=== PATIENT | female | born 1995 | race African-American/Black ===

== ENCOUNTER → 2022-10-24 11:40 | Outpatient (CLI) | payer MEDICAID, SELFPAY ==
[2022-10-24 13:29] LABS: Basophils % 0.3 % (0.1-2.0); Eosinophils # 0.1 K/mm3 (0.0-0.4); Eosinophils % 1.1 % (0.1-12.0); Lymphocytes # 2.3 K/mm3 (0.7-4.5); Lymphocytes % 27.2 % (10-50); Mean Corpuscular HGB Conc 33.5 g/dL (31.8-35.4); Mean Corpuscular Hemoglobin 31.5 pg (27.0-31.2); Mean Corpuscular Volume 94.1 fl (81-99); Monocytes # 0.4 K/mm3 (0.1-1.0); Monocytes % 4.5 % (1.7-9.3); Neutrophils # 5.7 K/mm3 (1.8-7.8); Neutrophils % 66.8 % (37.0-80.0); Platelet Count 326 K/mm3 (142-424); Red Blood Count 3.18 M/mm3 (4.20-5.40); Red Cell Distribution Width 14.4 % (11.5-17.5); White Blood Count 8.5 K/mm3 (4.8-10.8)
== END ==
PROVIDERS: Visit Provider Nurse Practitioner Obstetrics & Gynecology
DX: Z34.93 Encounter for supervision of normal pregnancy, unspecified, third trimester (principal); Z3A.32 32 weeks gestation of pregnancy
CPT/HCPCS: 36415; 85025; 87086

== ENCOUNTER → 2022-10-31 13:01 | Outpatient (CLI) | payer MEDICAID, SELFPAY ==
--- NOTE | 2022-10-31 13:06 | US_ITS ---
PROCEDURE: US OB BIOPHYSICAL PROFILE CLINICAL INDICATION: lga COMPARISON: FINDINGS: From her established due date she is 33weeks 2days. The following parameters are obtained: Viable fetus in the cephalic presentation with an anterior placenta grade 1. Average ultrasound age is 33weeks 6days. Estimated due date by ultrasound is 12/13/2022. Estimated weight is 5lb 10.57oz. 89Percentile. heart rate: 143bpm bpm. BPD: 32 weeks 2 days HC: 32 weeks 6 days AC: 34 weeks 4 days FL: 33 weeks 6 days HC/AC: 0.97 Cephalic index: 1.29 FL/BPD: 0.62 FL/AC: 0.22 Amniotic fluid index: 6.83cm is a 3.7 cm x 4.1 cm pocket. Qualitative AFV: 2 breathing movements: 2 Gross body movements: 2 Tone: 2 Biophysical profile score: 8 No obvious anomalies evident.Kidneys, three-vessel cord appear normal. Four-chamber view appears normal, profile seen. Stomach and bladder visualized. IMPRESSION: 1. Viable fetus in the cephalic presentation with an anterior placenta grade 1. Size and dates are congruent. 2. Fluid is low with an amniotic fluid index of 6.83 cm. There is a pocket measuring 3.7 cm x 4.1 cm. 3. Biophysical profile is 8/8 with good breathing movement seen. Dictated by: Tanner Fry MD 10/31/2022 19:52 Tanner Fry MD in OV 10/31/2022 19:52
== END ==
PROVIDERS: Visit Provider Nurse Practitioner Obstetrics & Gynecology
DX: O36.63X0 Maternal care for excessive fetal growth, third trimester, not applicable or unspecified (principal); Z3A.33 33 weeks gestation of pregnancy
CPT/HCPCS: 76816; 76819

== ENCOUNTER → 2022-11-20 16:35 | Outpatient (CLI) | payer MEDICAID, SELFPAY | PROVIDERS: PCP Nurse Practitioner Obstetrics & Gynecology; Visit Provider Nurse Practitioner Obstetrics & Gynecology | DX: O36.63X0 Maternal care for excessive fetal growth, third trimester, not applicable or unspecified (principal); Z3A.36 36 weeks gestation of pregnancy | CPT/HCPCS: 86403 ==

== ENCOUNTER 2022-12-01 09:00 | Inpatient (IN) | payer MEDICAID, SELFPAY ==
[2022-12-01] VITALS (13 sets, daily range): BP systolic 105–130; BP diastolic 58–83; PULSE 52–87; RESP 16–17; TEMP 36.5–37.1; O2SAT 99–100; BMI 25.1; BMI 25.2
[2022-12-01 09:32] LABS: Basophils % 0.4 % (0.1-2.0); Eosinophils # 0.1 K/mm3 (0.0-0.4); Hematocrit 30.2 % (37.0-47.0); Lymphocytes % 28.9 % (10-50); Mean Corpuscular HGB Conc 33.2 g/dL (31.8-35.4); Mean Corpuscular Hemoglobin 30.5 pg (27.0-31.2); Mean Platelet Volume 10.1 fl (7.4-10.4); Monocytes # 0.4 K/mm3 (0.1-1.0); Monocytes % 4.3 % (1.7-9.3); Neutrophils # 6.7 K/mm3 (1.8-7.8); Neutrophils % 65.4 % (37.0-80.0); Platelet Count 330 K/mm3 (142-424); Red Blood Count 3.29 M/mm3 (4.20-5.40); Red Cell Distribution Width 15.9 % (11.5-17.5); White Blood Count 10.3 K/mm3 (4.8-10.8)
--- NOTE | 2022-12-01 10:24 | EXP.OB.APHP ---
OB - H&P: HPI Antepartum History of Present Illness Chief complaint: Regular, painful contractions History of present illness: Ms Nahomy Hernández is a 27 yo at 37w5d who presents to [facility] Labor and Delivery with complaint of regular, painful contractions that started at 0300 this morning. She admits to vaginal spotting. No leakage of fluid. Baby is active. She was a transfer of care at 32 weeks. History of Present Criteria for establishing EDC:: based on LMP only care: limited care Labs Blood type: O (+) positive Rubella: unknown RPR/VDRL: unknown GBS status: negative HBsAG: unknown [facility] Disclaimer: The information contained in this section may have been updated after the patient was seen, as this information can be updated by other users. 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 (Updated 12/01/22 @ 11:06 by Reba Galo DO) 37 weeks gestation of Active labor History of gestational diabetes in prior , currently Large for gestational age fetus affecting management of mother Pre-diabetes Tobacco use affecting , antepartum Surgical History No history of previous surgery Family History Mother Diabetes Other Cancer Hypertension Social History Smoking Status: Current every day smoker tobacco type: cigarettes alcohol intake: never substance use type: denies use current occupational status: unemployed Travel in the last 8 weeks: None Review of Systems Review of Systems Review of systems:: pertinent systems reviewed and negative unless documented below *Genitourinary Comments: + painful contractions, vaginal spotting Meds Home Medications and Allergies Home Medications Medication Instructions Recorded Confirmed Type vits no.126-ferrous fum 1 tab PO DAILY Supplement 10/24/22 12/01/22 History 28 mg iron-folic acid 800 mcg tablet (Classic ) promethazine 25 mg tablet 25 mg PO TIDP PRN Nausea And 11/08/22 12/01/22 History Vomiting ferrous sulfate 325 mg (65 mg 325 mg PO DAILY Supplement 12/01/22 12/01/22 History iron) tablet New Prescriptions to Start Prescriptions: Allergies Allergy/AdvReac Type Severity Reaction Status Date / Time Penicillins Allergy Severe rash Verified 11/27/22 13:30 OB - H&P: Exam Constitutional moderate distress Routine HEENT Exam Head: Present normocephalic and atraumatic Eye: Absent conjunctivae pink ENT: Present mucous membranes moist Routine Neck Exam Present full ROM Routine Respiratory Exam Present CTA bilaterally and normal respiratory effort Routine Cardiovascular Exam Present RRR Routine Abdominal Exam Present soft (Gravid); Absent tenderness Routine Rectal Exam Patient deferred: visual exam Routine Exam External: Present normal urethra appearance; Absent erythema, tenderness, lesions or lacerations Routine Extremities Exam Present full ROM; Absent edema or calf tenderness Routine Neurological Exam Present alert, oriented X3 and moving all extremities Routine Psychiatric Exam Present normal affect Detailed Labor and Delivery Exam Dilation (cm): 5 Effacement (%): 80 Cervix position: anterior station: -1 Consistency: soft Membranes: intact Baseline heart rate: 125 monitor accelerations: Present monitor decelerations: Variable intermediate variability: Moderate (11-25) Contraction frequency (min): 3 OB - Results Labs Labs: Short CBC 12/01/22 Range/Units 09:17 WBC 10.3 (4.8-10.8) K/mm3 Hgb 10.0 L (12.2-16.2) g/dL Hct 30.2 L (37.0-47.0) % Plt Count 330 (142-424) K/mm3 OB - A/P Antepartum (1) 37 weeks gestation of : Status: Acute (2) Active labor: Status: Acute (3) Tobacco use affecting , antepartum: Status: Acu
--- NOTE | 2022-12-01 11:12 | EXP.DN ---
Delivery Note Delivery Date:: 12/01/22 Delivery Time:: 10:37 Anesthesia Type: Local Was labor medically induced?: No Gestational age (weeks): 37 delivered prior to 39 weeks?: Yes Justification for early elective delivery:: Active Labor Infant Gender: Male at 1 minute: 8 at 5 minutes: 9 Delivery Procedure:: Mom complete without epidural. Pushed for approximately 4 minutes. Head delivered spontaneously over intact perineum in direct OP position. No nuchal cord. Anterior shoulder delivered with gentle downward pressure. Posterior shoulder and remainder of body delivered spontaneously. Baby placed on maternal abdomen, mouth and nares bulb suctioned, warmed/dried and stimulated. Delayed cord clamping was performed for 60 seconds. Cord was clamped and cut by father of baby. Placenta delivered spontaneously and intact. Placenta will be sent to pathology for review. Second degree perineal laceration was repaired with 3-0 Vicryl. Hemostasis noted. Mom and baby were skin to skin and doing well after delivery. Live male baby (baby's name is Baldo) APGARs 8 (1 min), 9 (5 min) EBL 200 mL
[2022-12-01 16:31] LABS: Amphetamine/Metha Screen,Urine Negative ng/ml (<1000); Barbiturates Screen,Urine Negative ng/ml (<200)
[2022-12-01 16:32] LABS: Benzodiazepines Screen,Urine Negative ng/ml (<200)
[2022-12-01 16:33] LABS: Cannabinoid Screen,Urine Negative ng/ml (<50); Cocaine Screen,Urine Negative ng/ml (<300)
[2022-12-01 16:34] LABS: Methadone Screen,Urine Negative ng/ml (<300)
[2022-12-01 16:35] LABS: Opiate Screen,Urine Negative ng/ml (<300); Phencyclidine Screen,Urine Negative ng/ml (<25)
[2022-12-01 19:14] LABS: Hematocrit 30.4 % (37.0-47.0); Hemoglobin 10.2 g/dL (12.2-16.2)
[2022-12-02 07:32] LABS: Hematocrit 26.6 % (37.0-47.0)
[2022-12-02 07:43] LABS: Hemoglobin 8.7 g/dL (12.2-16.2)
--- NOTE | 2022-12-02 10:32 | EXP.DC.SUM ---
General Admission date:: 12/01/22 Discharge date: 12/02/22 HPI HPI HPI: PPD # 1 s/p Nahomy is feeling well this morning. Pain controlled. She is formula feeding. Voiding without difficulty and passing flatus. Tolerating regular diet. Denies fever/chills, chest pain and shortness of breath. Denies lightheadedness and dizziness. Ambulating well ad margie. Hospital Course Hospital Course Hospital Course: Ms Nahomy Hernández is a 27 yo at 37w5d who presented to [facility] Labor and Delivery with complaint of regular, painful contractions that started at 0300 on 12/01/22. She reported vaginal spotting. No leakage of fluid. Baby was active. She was a transfer of care at 32 weeks. She had a normal spontaneous vaginal delivery with a second degree perineal laceration. She delivered a live male baby (baby's name is Baldo) weighing 8 lb 5 oz. APGARs 8, 9. EBL 200 mL at time of delivery. She has history of hemorrhage with prior delivery. She was given TXA after delivery for hemorrhage prophlyaxis. She continued to bleed with QBL 1180. She was received 1 unit PRBCs and Venofer 200 mg x 1 dose for hemorrhage. She is doing well. Formula feeding. Appropriate lochia. Pain controlled. Voiding without difficulty and passing flatus. Tolerating regular diet. Vital signs stable, afebrile. Heart was regular rate and rhythm. Lungs clear to auscultation. Abdomen soft, nontender. No chest pain, shortness of breath, lightheadedness or dizziness. Patient states she has tubal ligation scheduled. She declines Depo Provera injection today. 12/01/22 H/H: 10.0/30.2 12/02/22 H/H: 8.7/26.6 Exam Data for Last 24 hours Vital signs and Labs for Last 24 Hours: Temp Pulse Resp BP Pulse Ox O2 Del Method 98.4 F 67 17 105/58 L 100 Room Air 12/01/22 19:54 12/01/22 19:54 12/01/22 19:54 12/01/22 19:54 12/01/22 19:54 12/01/22 19:54 Laboratory Results - last 24 hr 12/01/22 09:17: Blood Type O Positive, Antibody Screen Negative, Crossmatch (AHG) See Detail 12/01/22 13:09: Blood Type Confirm O Positive 12/01/22 15:50: Urine Opiates Screen Negative, Urine Methadone Screen Negative, Ur Barbituates Screen Negative, Ur Phencyclidine Scrn Negative, Ur Amphetamines Screen Negative, U Benzodiazepines Scrn Negative, Urine Cocaine Screen Negative, U Marijuana (THC) Screen Negative 12/01/22 18:50: Hgb 10.2 L, Hct 30.4 L 12/02/22 07:15: Hgb 8.7 L D, Hct 26.6 L I & O for Last 24 hours: Intake & Output 11/29/22 11/30/22 12/01/22 12/02/22 23:59 23:59 23:59 23:59 Intake Total 250 / 250 Balance 250 / 250 Weight 170 lb 0.01 oz Constitutional Constitutional: no acute distress *Routine HEENT Exam Head: Present normocephalic and atraumatic Eye: Absent conjunctivae pink ENT: Present mucous membranes moist *Routine Neck Exam Neck: Present full ROM *Routine Respiratory Exam Respiratory: Present CTA bilaterally and normal respiratory effort *Routine Cardiovascular Exam Cardiovascular: Present RRR *Routine Abdominal Exam Abdominal: Present soft and normoactive bowel sounds; Absent tenderness or distended Comments: Uterine fundus firm and below umbilicus *Routine Rectal Exam Patient deferred: visual exam *Routine Exam Patient deferred: external exam *Routine Extremities Exam Extremities: Present full ROM; Absent edema or calf tenderness *Routine Neurological Exam Neurological: Present alert, oriented X3 and moving all extremities Routine Psychiatric Exam Psychiatric: Present normal affect and cooperative Results Data Completed and Pending Labs on day of discharge: Labs from last 24 hours 12/02/22 12/01/22 12/01/22 07:15 18:50 15:50 Hgb 8.7 L D 10.2 L Hct 26.6 L 30.4 L Urine Opiates Screen Negative Urine Methadone Screen Negative Ur Barbituates Screen Negative Ur Phencyclidine Scrn Negative Ur Amphetamines Screen Negative U Benzodiazepines Scrn Negative Urine Cocaine Screen Negative
== END 2022-12-02 12:45 | disposition home or self-care (01) | DRG 807 ==
LOC: OBOUT 09:00 → OB 09:00
PROVIDERS: Admitting Provider Obstetrics & Gynecology; Visit Provider Obstetrics & Gynecology
DX: O24.429 Gestational diabetes mellitus in childbirth, unspecified control (principal); Z37.0 Single live birth; Z3A.37 37 weeks gestation of pregnancy; O70.1 Second degree perineal laceration during delivery
CPT/HCPCS: 59409; 36415; 59025; 80305; 85014; 85018; 85025; 86850; 88307; J1756; P9016

== ENCOUNTER → 2023-02-01 15:45 | Outpatient (CLI) | payer MEDICAID, SELFPAY ==
[2023-02-01 16:02] LABS: Basophils # 0.1 K/mm3 (0-0.2); Basophils % 0.6 % (0.1-2.0); Eosinophils # 0.2 K/mm3 (0.0-0.4); Eosinophils % 2.3 % (0.1-12.0); Hematocrit 34.8 % (37.0-47.0); Hemoglobin 12.3 g/dL (12.2-16.2); Lymphocytes # 3.3 K/mm3 (0.7-4.5); Lymphocytes % 32.8 % (10-50); Mean Corpuscular HGB Conc 35.4 g/dL (31.8-35.4); Mean Corpuscular Hemoglobin 32.9 pg (27.0-31.2); Mean Platelet Volume 9.5 fl (7.4-10.4); Monocytes # 0.5 K/mm3 (0.1-1.0); Monocytes % 4.5 % (1.7-9.3); Neutrophils # 5.9 K/mm3 (1.8-7.8); Neutrophils % 59.7 % (37.0-80.0); Platelet Count 263 K/mm3 (142-424); Red Blood Count 3.74 M/mm3 (4.20-5.40); Red Cell Distribution Width 16.5 % (11.5-17.5); White Blood Count 9.9 K/mm3 (4.8-10.8)
[2023-02-01 16:26] LABS: Alanine Aminotransferase 18 U/L (12-78); Albumin Level 4.3 g/dl (3.5-5.0); Albumin/Globulin Ratio 1.7 (1.1-1.8); Alkaline Phosphatase 48 U/L (38-126); Anion Gap 9.9 mEq/L (5-15); Aspartate Amino Transferase 26 U/L (14-36); Bilirubin,Total 0.4 mg/dl (0.2-1.3); Blood Urea Nitrogen 11 mg/dl (7-17); Calcium 9.4 mg/dl (8.4-10.2); Carbon Dioxide 28 mmol/L (22.0-30.0); Chloride 106 mmol/L (98-107); Estimated Glomerular Filt Rate 101 ml/min (>60); GFR (African American) 122 ML/MIN (>60); Globulin 2.6 g/dL (1.3-3.2); Glucose 99 mg/dl (74-100); Potassium 3.9 mmoL/L (3.5-5.1); Sodium 140 mmol/L (136-145); Total Protein,Serum 6.9 g/dl (6.3-8.2)
[2023-02-01 16:43] LABS: HCG,Quantitative < 2 mIU/ml (0-5.42)
== END ==
PROVIDERS: PCP Nurse Practitioner Obstetrics & Gynecology; Visit Provider Nurse Practitioner Obstetrics & Gynecology
DX: Z30.2 Encounter for sterilization (principal)
CPT/HCPCS: 36415; 80053; 84702; 85025

== ENCOUNTER 2023-02-05 08:05 | Day surgery (SDC) | payer MEDICAID, SELFPAY ==
[2023-02-01 15:57] VITALS: BMI 31.9
[2023-02-05] VITALS (10 sets, daily range): BP systolic 120–153; BP diastolic 58–93; PULSE 67–76; RESP 12–20; TEMP 6.1–43; O2SAT 98–100
--- NOTE | 2023-02-05 10:40 | EXP.ANES.CKL ---
[facility] Disclaimer: The information contained in this section may have been updated after the patient was seen, as this information can be updated by other users. 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 37 weeks gestation of Active labor History of gestational diabetes in prior , currently History of hemorrhage, currently Large for gestational age fetus affecting management of mother hemorrhage Pre-diabetes Tobacco use affecting , antepartum Surgical History No history of previous surgery Family History Mother Diabetes Other Cancer Hypertension Social History Smoking Status: Current every day smoker tobacco type: cigarettes alcohol intake: former substance use type: denies use current occupational status: employed Travel in the last 8 weeks: None [facility] Anesthesia Checklist Patient Identification Patient Identification: Arm Band and Verbal (Name & ) Structural Data Admitted From: Home Planned Operative Procedure/s: Lap. salpingectomy Consent for Planned Operative Procedure(s) Verified: Yes NPO Status Verified Time NPO: 00:00 Chart Verification Results Verified: CBC, BMP and HCG Additional verifications Anesthesia Reactions: No Hx Blood Transfusions: Yes Blood Transfusion Reaction: No Airway Assessment Mallampati Score:: Class III C-Spine Mobility Assessed: Yes TMJ Mobility Assessed: Yes Dentition: Good Dentition Neurological Assessment Level of Consciousness: Awake Hx Seizures: No Numbness or tingling in extremities: No Anesthesia Plan Anesthesia Risk discussed: Yes Anesthesia Plan: Verified ASA Class: II Anesthesia Type: General
--- NOTE | 2023-02-05 12:14 | P.OP_ITS ---
Date of procedure: 02/05/23 Pre-op Diagnosis:: Desire for sterilization Post-op Diagnosis:: Desire for sterilization Procedure performed:: Laparoscopic bilateral salpingectomy Surgeon:: Tanner Fry MD HOSPITALIST PHYSICIAN:: Pascual Marin Anesthesia: GETA Estimated blood loss (mL): 25 Clinical Note:: She is a 27-year-old lady who expressed desire for sterilization. The risks and benefits as well as the irreversibility of bilateral salpingectomy were discussed with the patient prior to the surgery. Operative findings:: She had a normal anteverted bulky uterus. The ovaries and tubes appeared normal. The rest the abdomen appeared normal. Operative note:: She was taken to the operating room where general anesthesia was found be adequate. She was prepped and draped in normal sterile fashion in the semilithotomy position. A weighted speculum was placed in the vagina and the anterior lip of the cervix was grasped with a tenaculum. I then inserted a Génesis uterine manipulator into the cervical os. The balloon was then insufflated. I changed gloves and injected 10 cc of 0.5% ropivacaine around her umbilicus and made a small incision within the umbilicus. I inserted a Veress needle into the abdominal cavity. The peritoneal cavity was then insufflated with carbon dioxide gas to a pressure of 20 mmHg. I then inserted a 5 millimeter trocar under direct vision. I injected through and through the pubic hairline, made a small incision here and inserted an 8 mm trocar under direct vision. I identified the inferior epigastric artery on the left side, went lateral to the se and injected through and through. I then placed a 5 mm trocar here under direct vision. The pelvis and upper abdomen were then inspected and the findings were as previously dictated. I grasped the right tube at the cornua and using harmonic scalpel on coagulation mode I cut through the tube. I then grasped the distal tube and using harmonic scalpel cut along the mesosalpinx. The tube was removed through 8 mm trocar site. This was similarly performed on the patient's left side. I then injected 30 cc of 0.5% ropivacaine into the pelvis. After assuring hemostasis the gas was let out of the abdomen and hemostasis was once again assured. The abdomen was then reinsufflated. The secondary trochars were removed under direct vision. The gas was let out her abdomen. The primary trocar was then removed. The 8 mm trocar site was closed deeply with 2-0 Vicryl suture followed by subcuticular 4-0 Monocryl suture. The 5 mm trocar sites were closed with subcuticular 4-0 Monocryl. Sterile dressings were applied. The patient tolerated the procedure well and was taken to the recovery room in excellent condition. All sponge instrument and needle counts were correct. The estimated blood loss was less than 25 cc. Condition: stable Disposition: PACU Specimens:: Bilateral fallopian tubes Complications:: None
--- NOTE | 2023-02-05 12:27 | EXP.ANES.I ---
[facility] Anesthesia Record Part I Anesthesia Record I Intake, IV Amount: 1,000 Hydration: Adequate Estimated blood loss (mL): 0 Urine output (mL): 0 Blood Pressure: 153/58 SaO2: 98 Pulse Rate: 73 Airway Patency: Patent Respiratory Rate: 12 Temperature: 97.5 F Patient is:: Awake and Stable Stable to PACU at:: 12:23
--- NOTE | 2023-02-06 07:27 | EXP.ANES.II ---
[facility] Anesthesia Record Part II Anesthesia Record Part II Discharge Time: 12:52 Destination: Surgical Day Care (OP Surgery) PACU nurse assessment reviewed?: Yes Patient Condition:: Good Anesthesia Complications:: None Swallowing reflex intact?: Yes Airway Patency: Patent Cyanosis?: No Blood Pressure: 120/75 SaO2: 100 Respiratory Rate: 16 Pulse Rate: 71 Temperature: 98 F Mental Status: Alert & Oriented Pain level:: 0 Nausea and/or vomitting:: None Intake, IV Amount: 0 Hydration: Adequate
[2023-02-06 07:28] VITALS: BP 120/75; PULSE 71; RESP 16; TEMP 36.6; O2SAT 100
== END 2023-02-05 13:28 | disposition home or self-care (01) ==
PROVIDERS: PCP Nurse Practitioner Obstetrics & Gynecology; Visit Provider Nurse Practitioner Obstetrics & Gynecology
PROC: (CPT 58661; principal; 2023-02-05 11:45)
DX: Z30.2 Encounter for sterilization (principal)
CPT/HCPCS: 58661; 96374; J2405; J2710

== ENCOUNTER 2023-06-10 06:12 | Emergency (ER) | payer MEDICAID, SELFPAY ==
[2023-06-10] VITALS (7 sets, daily range): BP systolic 94–134; BP diastolic 60–88; PULSE 60–78; RESP 18–19; TEMP 36.6–36.8; O2SAT 97–100; BMI 32.3
--- NOTE | 2023-06-10 06:22 | HMH.EDGENADL ---
Discharge Plan Disposition Patient Disposition: Still a Patient Condition: Good Prescriptions Prescriptions: No Action No Known Home Medications Referrals Follow up/Referrals: Davon Grant MD [Staff Physician] - 3 days (CALL AND MAKE AN APPOINTMENT TO SEE DR GRANT) ProviderAimee MD [Primary Care Provider] - See instructions Activity Restrictions/Add. Instructions Additional Instructions/Restrictions: You have been evaluated in the ED for your complaints. You may follow-up with your PCP in the next 3 to 5 days. Please return to ED for any new or worsening symptoms. As discussed, please follow-up with Dr. Grant with general surgery this week for follow-up concerning your gallstones. Please take ibuprofen and Tylenol as needed for pain. Clinical Impressions Clinical Impression: Cholelithiasis Abdominal pain Qualifiers: Abdominal location: periumbilical Qualified Code(s): R10.33 - Periumbilical pain Stand Alone Forms Stand Alone Forms: Work/School Release Instructions Patient Instructions: DI for Gallstones, DI for Acute Abdominal Pain Discharge ED Provider: Ralph Alarcon General Adult HPI <Ralph Alarcon MD - Last Filed: 06/10/23 06:43> General Chief complaint: Abdominal Pain Stated complaint: abdominal pain, back pain Time Seen by Provider: 06/10/23 06:15 History of Present Illness HPI narrative: 28-year-old female, presents with abdominal pain. She reports her pain started at approximately 1 AM, 5 hours prior to arrival. It is periumbilical in location, now migrated to the right side, both upper and lower in the right flank. She denies any fevers. She reports nausea but no vomiting. She denies any urinary symptoms. She reports no history of abdominal surgery besides tubal ligation. Related Data Home Medications Medication Instructions Recorded Confirmed No Known Home Medications 02/25/23 02/25/23 Allergies Allergy/AdvReac Type Severity Reaction Status Date / Time Penicillins Allergy Severe rash Verified 02/25/23 11:09 REPLACED BY [facility] <Ralph Alarcon MD - Last Filed: 06/10/23 06:43> REPLACED BY [facility] Disclaimer: The information contained in this section may have been updated after the patient was seen, as this information can be updated by other users. 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 37 weeks gestation of Active labor History of gestational diabetes in prior , currently History of hemorrhage, currently Large for gestational age fetus affecting management of mother hemorrhage Pre-diabetes Tobacco use affecting , antepartum Surgical History No history of previous surgery Family History Mother Diabetes Other Cancer Hypertension Social History Smoking Status: Never smoker alcohol intake: former substance use type: denies use current occupational status: employed Travel in the last 8 weeks: None <Ralph Alarcon MD - Last Filed: 06/10/23 06:43> ROS Obtained: Yes All systems reviewed & no additional complaints except as documented Physical Exam <Ralph Alarcon MD - Last Filed: 06/10/23 06:43> General General appearance: alert and anxious Head Head exam: atraumatic and normocephalic Eye Eye exam: Present normal appearance, PERRL and EOMI ENT ENT exam: Present normal oropharynx and normal external ear exam Neck Neck exam: Present normal inspection and full ROM Chest Chest inspection: Present normal inspection and symmetric chest wall rise; Absent tenderness Respiratory Respiratory exam: Present normal lung sounds bilaterally; Absent respiratory distress Cardiovascular Cardiovascular exam: Present regular rate and normal rhythm Abdominal Exam Abdominal exam: Present soft and tenderness (Periumbilical, right upper quadrant, right lower quadrant); Absent distention or guarding Comment: Easily reducible small periumbilical hernia noted. Extremities Exam Extremities exam: Present normal inspection; Absent edema or joint swelling Back Exam Back exam: Present normal inspection; Absent tenderness Neurological Exam Neurological exam: Present alert and oriented X3; Absent motor sensory deficit Psychiatric Psychiatric exam: Present agitated and anxious Skin Skin exam: Present warm, dry and normal color Lymphatic Lymphatic Findings: no adenopathy Medical Decision Making <Ralph Alarcon MD - Last Filed: 06/10/23 06:43> Medical Records Medical records reviewed: Yes I reviewed the patient's medical records. Mychal Inquiry Pt receiving controlled substance: No Mychal was queried for this patient: No Vital Signs: 06/10/23 06:13 06/10/23 07:10 06/10/23 07:30 Temperature 98.2 F Temperature Source Oral Pulse Rate 62 68 Pulse Rate [Left Radial] 78 Respiratory Rate 19 Blood Pressure 107/64 L 103/63 L Blood Pressure [Right Arm] 134/88 Blood Pressure Mean [Right Arm] 103 Blood Pressure Source [Right Arm] Automatic Cuff Blood Pressure Position [Right Arm] Sitting 02 Sat by Pulse Oximetry 99 100 97 Oxygen Delivery Method Room Air Room Air 06/10/23 08:30 06/10/23 09:00 06/10/23 09:29 Temperature Temperature Source Pulse Rate 64 61 63 Pulse Rate [Left Radial] Respiratory Rate Blood Pressure 94/60 L 110/75 106/74 L Blood Pressure [Right Arm] Blood Pressure Mean [Right Arm] Blood Pressure Source [Right Arm] Blood Pressure Position [Right Arm] 02 Sat by Pulse Oximetry 99 99 99 Oxygen Delivery Method Room Air Room Air Room Air Lab Data Lab results reviewed: Yes I reviewed the patient's lab results. Lab Results 06/10/23 06:16: Urine Color Yellow, Urine Appearance Clear, Urine pH 6.5, Ur Specific Morris 1.025, Urine Protein Negative, Urine Glucose (UA) Negative, Urine Ketones Negative, Urine Blood Trace-i, Urine Nitrate Negative, Urine Bilirubin Negative, Urine Urobilinogen 0.2, Ur Leukocyte Esterase Negative, Urine RBC 3-5, Urine WBC 3-5, Ur Squamous Epith Cells 3-5, Urine Bacteria None, Urine HCG, Qual Negative 06/10/23 06:50: WBC 7.1, RBC 3.79 L, Hgb 12.5, Hct 36.4 L, MCV 96.0, MCH 32.8 H, MCHC 34.2, RDW 14.0, Plt Count 271, MPV 9.2, Neut % (Auto) 52.7, Lymph % (Auto) 39.2, [place] % (Auto) 4.5, Eos % (Auto) 3.1, Baso % (Auto) 0.5, Neut # (Auto) 3.8, Lymph # (Auto) 2.8, [place] # (Auto) 0.3, Eos # (Auto) 0.2, Baso # (Auto) 0.0, Sodium 138, Potassium 4.0, Chloride 111 H, Carbon Dioxide 24, Anion Gap 7.0, BUN 14, Creatinine 0.70, Estimated Creat Clear 173, Estimated GFR 100, Est GFR ( Amer) 121, Glucose 126 H, Calcium 8.6, Total Bilirubin 0.5, AST 33, ALT 26, Alkaline Phosphatase 51, Total Protein 6.8, Albumin 4.0, Globulin 2.8, Albumin/Globulin Ratio 1.4, Lipase 100 06/10/23 06:50 06/10/23 06:50 Orders (Tests/Meds): ED MEDICATIONS Discontinued Medications Generic Name Dose Route Start Last Admin Trade Name Freq PRN Reason Stop Dose Admin Acetaminophen 1,000 mg 06/10/23 06:22 06/10/23 06:29 Acetaminophen 500mg Tab PO 06/10/23 06:23 1,000 mg ONCE ONE Administration Iopamidol 75 ml 06/10/23 08:04 06/10/23 08:05 Iopamidol-370 (76%);100ml Bottle IV 06/10/23 08:05 75 ml ONCE ONE Administration Ketorolac Tromethamine 30 mg 06/10/23 06:22 06/10/23 06:29 Ketorolac 30mg/Ml Vial IV 06/10/23 06:23 30 mg ONCE ONE Administration Ondansetron HCl 4 mg 06/10/23 06:22 06/10/23 06:29 Ondansetron 4mg/2ml Vial IV 06/10/23 06:23 4 mg ONCE ONE Administration Sodium Chloride 10 ml 06/10/23 08:04 06/10/23 08:05 Sodium Chloride 0.9% 10ml Syr (Rad Only) IV 06/10/23 08:05 10 ml ONCE ONE Administration ORDERS Category Date Time Status CT abdomen pelvis w con Stat Cat Scan 06/10/23 06:23 Taken CBC w/Auto Diff [Complete Blood Count Auto Diff] Stat Lab 06/10/23 06:50 Completed CMP [Comprehensive Metabolic Panel] Stat Lab 06/10/23 06:50 Completed Lipase Stat Lab 06/10/23 06:50 Completed UA [Urinalysis and Microscopic] Stat Lab 06/10/23 06:16 Completed Urine , HCG Qual. Stat Lab 06/10/23 06:16 Completed Medical Decision Narrative: 28-year-old female presents with periumbilical abdominal pain radiating to her right side. History was obtained interactive discussion with patient. On arrival, patient is [afebrile, hemodynamically stable, satting appropriately, alert, oriented x4, GCS 15], moving all extremities spontaneously. Full physical exam performed and significant for mild periumbilical and right-sided abdominal tenderness, easily reducible small periumbilical hernia, no guarding or peritonitis. Differential includes but is not limited to constipation, appendicitis, pancreatitis, UTI, cholecystitis. Patient was given Tylenol, Toradol, Zofran, for symptomatic management and correction of underlying abnormalities. Workup initiated including CBC CMP lipase qualitative beta-hCG UA CT abdomen pelvis with IV contrast. At this time care handed off to oncoming physician. <Samuel Calvin, DO - Last Filed: 06/10/23 10:22> Vital Signs: 06/10/23 06:13 06/10/23 07:10 06/10/23 07:30 Temperature 98.2 F Temperature Source Oral Pulse Rate 62 68 Pulse Rate [Left Radial] 78 Respiratory Rate 19 Blood Pressure 107/64 L 103/63 L Blood Pressure [Right Arm] 134/88 Blood Pressure Mean [Right Arm] 103 Blood Pressure Source [Right Arm] Automatic Cuff Blood Pressure Position [Right Arm] Sitting 02 Sat by Pulse Oximetry 99 100 97 Oxygen Delivery Method Room Air Room Air 06/10/23 08:30 06/10/23 09:00 06/10/23 09:29 Temperature Temperature Source Pulse Rate 64 61 63 Pulse Rate [Left Radial] Respiratory Rate Blood Pressure 94/60 L 110/75 106/74 L Blood Pressure [Right Arm] Blood Pressure Mean [Right Arm] Blood Pressure Source [Right Arm] Blood Pressure Position [Right Arm] 02 Sat by Pulse Oximetry 99 99 99 Oxygen Delivery Method Room Air Room Air Room Air Lab Data Lab Results 06/10/23 06:16: Urine Color Yellow, Urine Appearance Clear, Urine pH 6.5, Ur Specific Morris 1.025, Urine Protein Negative, Urine Glucose (UA) Negative, Urine Ketones Negative, Urine Blood Trace-i, Urine Nitrate Negative, Urine Bilirubin Negative, Urine Urobilinogen 0.2, Ur Leukocyte Esterase Negative, Urine RBC 3-5, Urine WBC 3-5, Ur Squamous Epith Cells 3-5, Urine Bacteria None, Urine HCG, Qual Negative 06/10/23 06:50: WBC 7.1, RBC 3.79 L, Hgb 12.5, Hct 36.4 L, MCV 96.0, MCH 32.8 H, MCHC 34.2, RDW 14.0, Plt Count 271, MPV 9.2, Neut % (Auto) 52.7, Lymph % (Auto) 39.2, [place] % (Auto) 4.5, Eos % (Auto) 3.1, Baso % (Auto) 0.5, Neut # (Auto) 3.8, Lymph # (Auto) 2.8, [place] # (Auto) 0.3, Eos # (Auto) 0.2, Baso # (Auto) 0.0, Sodium 138, Potassium 4.0, Chloride 111 H, Carbon Dioxide 24, Anion Gap 7.0, BUN 14, Creatinine 0.70, Estimated Creat Clear 173, Estimated GFR 100, Est GFR ( Amer) 121, Glucose 126 H, Calcium 8.6, Total Bilirubin 0.5, AST 33, ALT 26, Alkaline Phosphatase 51, Total Protein 6.8, Albumin 4.0, Globulin 2.8, Albumin/Globulin Ratio 1.4, Lipase 100 Orders (Tests/Meds): ED MEDICATIONS Discontinued Medications Generic Name Dose Route Start Last Admin Trade Name Antonio PRN Reason Stop Dose Admin Acetaminophen 1,000 mg 06/10/23 06:22 06/10/23 06:29 Acetaminophen 500mg Tab PO 06/10/23 06:23 1,000 mg ONCE ONE Administration Iopamidol 75 ml 06/10/23 08:04 06/10/23 08:05 Iopamidol-370 (76%);100ml Bottle IV 06/10/23 08:05 75 ml ONCE ONE Administration Ketorolac Tromethamine 30 mg 06/10/23 06:22 06/10/23 06:29 Ketorolac 30mg/Ml Vial IV 06/10/23 06:23 30 mg ONCE ONE Administration Ondansetron HCl 4 mg 06/10/23 06:22 06/10/23 06:29 Ondansetron 4mg/2ml Vial IV 06/10/23 06:23 4 mg ONCE ONE Administration Sodium Chloride 10 ml 06/10/23 08:04 06/10/23 08:05 Sodium Chloride 0.9% 10ml Syr (Rad Only) IV 06/10/23 08:05 10 ml ONCE ONE Administration ORDERS Category Date Time Status CT abdomen pelvis w con Stat Cat Scan 06/10/23 06:23 Taken CBC w/Auto Diff [Complete Blood Count Auto Diff] Stat Lab 06/10/23 06:50 Completed CMP [Comprehensive Metabolic Panel] Stat Lab 06/10/23 06:50 Completed Lipase Stat Lab 06/10/23 06:50 Completed UA [Urinalysis and Microscopic] Stat Lab 06/10/23 06:16 Completed Urine , HCG Qual. Stat Lab 06/10/23 06:16 Completed Medical Decision Narrative: 28-year-old female presents with periumbilical abdominal pain radiating to her right side. History was obtained interactive discussion with patient. On arrival, patient is [afebrile, hemodynamically stable, satting appropriately, alert, oriented x4, GCS 15], moving all extremities spontaneously. Full physical exam performed and significant for mild periumbilical and right-sided abdominal tenderness, easily reducible small periumbilical hernia, no guarding or peritonitis. Differential includes but is not limited to constipation, appendicitis, pancreatitis, UTI, cholecystitis. Patient was given Tylenol, Toradol, Zofran, for symptomatic management and correction of underlying abnormalities. Workup initiated including CBC CMP lipase qualitative beta-hCG UA CT abdomen pelvis with IV contrast. At this time care handed off to oncoming physician. Dr. Calvin: No elevation in WBC at 7.1. No transaminitis on CMP with AST of 33, ALT 26, alkaline phosphatase of 51. Lipase within range at 100. No signs of UTI on urinalysis. CT preliminary read noting stones or sludge and mildly distended gallbladder. No other acute intra-abdominal findings noted. On reassessment, the patient remains clinically stable and in no acute distress. She states that her symptoms are resolved at this time. I discussed her ED workup and results. I also used bedside ultrasound to further assess patient's gallbladder and there were 2 stones noted. Not appear to be obstructed. Patient was also without pain on light and deep palpation in the right upper quadrant on my reassessment. Patient's symptoms today are likely due to cholelithiasis however her symptoms are well-controlled at this time. I did speak with Dr. Grant about the patient and he has noted the patient to be seen in clinic later this week for follow-up. I discussed this plan with patient and she verbalized understanding and agreement. Also discussed return ED precautions. She verbalized understanding and agreement with plan. Subsequently discharged home hemodynamically stable and in no acute distress. Procedures <Ralph Alarcon MD - Last Filed: 06/10/23 06:43> Risk/Benefits of Procedure(s) Were Explained: Yes <Samuel Calvin DO - Last Filed: 06/10/23 10:22> Limited Ultrasound Indication:: Right upper quadrant pain Findings:: Cholelithiasis. No significant thickening of the gallbladder wall. Interpretation:: Cholelithiasis without cholecystitis Critical Care <Ralph Alarcon MD - Last Filed: 06/10/23 06:43> Critical Care Time Critical Care Time: No
--- NOTE | 2023-06-10 06:23 | CT_ITS ---
FINAL REPORT TECHNIQUE: After the administration of intravenous contrast, axial images were obtained through the abdomen and pelvis by computed tomography. This study was performed with technique to keep radiation doses as low as reasonably achievable, (ALARA). Individualized dose reduction techniques using automated exposure control or adjustment of the MA and/or KV according to the patient's size were employed. CLINICAL HISTORY: periumbilical, RUQ/RLQ pain FINDINGS: Abdomen: The lung bases are clear. The liver is normal in size and attenuation. There are gallstones and sludge within a mildly distended gallbladder. The spleen is unremarkable. The adrenals are normal. The pancreas is unremarkable. The kidneys enhance appropriately. The aorta is normal in caliber. There is no free fluid or adenopathy. Pelvis: The appendix is not identified. A large amount of stool is present. Uterus is anteverted. There are benign appearing cyst/follicles in the right ovary. The urinary bladder is unremarkable. There is no free fluid or adenopathy. IMPRESSION: Stones or sludge and mildly distended gallbladder. Reviewed, Interpreted and Dictated by Oscar Ratliff MD Transcribed by Zeny Ruiz Authenticated and [facility]
[2023-06-10] MEDS: ONDANSETRON 4MG/2ML VIAL 4 MG IV (06:29)
[2023-06-10] MEDS: ACETAMINOPHEN 500MG TAB 1000 MG PO (06:29)
[2023-06-10] MEDS: KETOROLAC 30MG/ML VIAL 30 MG IV (06:29)
[2023-06-10 06:32] LABS: Microscopic, Urine URINE MICROSCOPIC (MICROSCOPIC)
[2023-06-10 06:34] LABS: Appearance,Urine CLEAR (Clear); Bilirubin,Urine Negative (Negative); Blood, Urine TRACE-I (Negative); Color,Urine YELLOW (Yellow); Glucose,Urine (UA) Negative (Negative); Ketones,Urine Negative (Negative); Leukocyte Esterase,Urine Negative (Negative); Nitrate,Urine Negative (Negative); PH,Urine 6.5 (5.0-8.5); Protein,Urine Negative (Negative); Specific Gravity, Urine 1.025 (1.005-1.030); Urobilinogen,Urine 0.2 EU/dl (0.2)
[2023-06-10 07:10] LABS: Chloride 111 mmol/L (98-107); Sodium 138 mmol/L (136-145)
[2023-06-10 07:12] LABS: Basophils % 0.5 % (0.1-2.0); Blood Urea Nitrogen 14 mg/dl (7-17); Creatinine Clearance Estimated 173 mL/min (50-200); Eosinophils # 0.2 K/mm3 (0.0-0.4); Eosinophils % 3.1 % (0.1-12.0); Estimated Glomerular Filt Rate 100 ml/min (>60); GFR (African American) 121 ML/MIN (>60); Hematocrit 36.4 % (37.0-47.0); Hemoglobin 12.5 g/dL (12.2-16.2); Lymphocytes # 2.8 K/mm3 (0.7-4.5); Lymphocytes % 39.2 % (10-50); Mean Corpuscular HGB Conc 34.2 g/dL (31.8-35.4); Mean Corpuscular Hemoglobin 32.8 pg (27.0-31.2); Mean Platelet Volume 9.2 fl (7.4-10.4); Monocytes # 0.3 K/mm3 (0.1-1.0); Monocytes % 4.5 % (1.7-9.3); Neutrophils # 3.8 K/mm3 (1.8-7.8); Neutrophils % 52.7 % (37.0-80.0); Platelet Count 271 K/mm3 (142-424); Red Blood Count 3.79 M/mm3 (4.20-5.40); White Blood Count 7.1 K/mm3 (4.8-10.8)
[2023-06-10 07:13] LABS: Alanine Aminotransferase 26 U/L (12-78); Albumin/Globulin Ratio 1.4 (1.1-1.8); Alkaline Phosphatase 51 U/L (38-126); Aspartate Amino Transferase 33 U/L (14-36); Bilirubin,Total 0.5 mg/dl (0.2-1.3); Calcium 8.6 mg/dl (8.4-10.2); Carbon Dioxide 24 mmol/L (22.0-30.0); Globulin 2.8 g/dL (1.3-3.2); Glucose 126 mg/dl (74-100); Lipase 100 U/L (23-300); Total Protein,Serum 6.8 g/dl (6.3-8.2)
--- NOTE | 2023-06-10 07:14 | PC.NURSE ---
Rounded on pt. Pt complaining of pain. Dr. Calvin notified. Call light placed within reach.
--- NOTE | 2023-06-10 07:40 | PC.NURSE ---
ROUNDED ON PT, UPDATED ON POC. CALL LIGHT WITHIN REACH. NO NEEDS AT THIS TIME
[2023-06-10 07:48] LABS: Urine Pregnancy, HCG Qual. Negative (Negative)
--- NOTE | 2023-06-10 07:59 | PC.NURSE ---
PT TO CT
[2023-06-10] MEDS: IOPAMIDOL-370 (76%);100ML BOTTLE 75 ML IV (08:05)
[2023-06-10] MEDS: SODIUM CHLORIDE 0.9% 10ML SYR (RAD ONLY) 10 ML IV (08:05)
--- NOTE | 2023-06-10 08:11 | PC.NURSE ---
PT RETURNED FROM CT, WARM BLANKET PROVIDED. CALL LIGHT WITHIN REACH
--- NOTE | 2023-06-10 08:35 | PC.NURSE ---
DR RONQUILLO AT BEDSIDE TO UPDATE PT
--- NOTE | 2023-06-10 08:55 | PC.NURSE ---
Pt resting in bed with eyes closed. Respirations are even and unlabored. Pt audibly snoring. Call light within reach.
--- NOTE | 2023-06-10 09:37 | PC.NURSE ---
pt requesting to leave to go smoke, notified, spoke with radiology, faxing preliminary ct report now
--- NOTE | 2023-06-10 09:39 | PC.NURSE ---
Patient assisted to bathroom. No other needs at this time.
--- NOTE | 2023-06-10 09:54 | PC.NURSE ---
Dr. Calvin at BS to /s [facility]
--- NOTE | 2023-06-10 10:02 | PC.NURSE ---
Dr Juanita aguilera, surgeon operator control room. He will call back when available
--- NOTE | 2023-06-10 10:07 | PC.NURSE ---
DR RONQUILLO SPEAKING WITH DR SORIANO
== END 2023-06-10 10:21 | disposition home or self-care (01) ==
PROVIDERS: Emergency Medicine; Emergency Provider Emergency Medicine
DX: K80.20 Calculus of gallbladder without cholecystitis without obstruction (principal); R10.33 Periumbilical pain; R10.11 Right upper quadrant pain; R10.31 Right lower quadrant pain; R11.0 Nausea; K42.9 Umbilical hernia without obstruction or gangrene
CPT/HCPCS: 74177; 80053; 81001; 81025; 83690; 85025; 96374; 96375; 99285; J2405; Q9967

== ENCOUNTER 2023-06-15 17:11 | Emergency (ER) | payer MEDICAID, SELFPAY ==
[2023-06-15] VITALS (9 sets, daily range): BP systolic 106–138; BP diastolic 65–93; PULSE 61–78; RESP 18–20; TEMP 36.8–37; O2SAT 98–100; BMI 32.3
[2023-06-15] MEDS: LACTATED RINGERS 1000ML 1,000 ML 999 ML IV (17:42)
[2023-06-15] MEDS: ONDANSETRON 4MG/2ML VIAL 4 MG IV ×2 (17:43→20:51)
[2023-06-15] MEDS: KETOROLAC 30MG/ML VIAL 15 MG IV (17:43)
[2023-06-15] MEDS: ACETAMINOPHEN 1,000MG/100ML VIAL 1000 MG IV (17:43)
[2023-06-15 17:44] LABS: Microscopic, Urine URINE MICROSCOPIC (MICROSCOPIC)
[2023-06-15 17:46] LABS: Basophils % 0.7 % (0.1-2.0); Eosinophils # 0.2 K/mm3 (0.0-0.4); Eosinophils % 2.9 % (0.1-12.0); Hematocrit 37.2 % (37.0-47.0); Hemoglobin 12.2 g/dL (12.2-16.2); Lymphocytes % 37.7 % (10-50); Mean Corpuscular HGB Conc 32.8 g/dL (31.8-35.4); Mean Corpuscular Hemoglobin 32.5 pg (27.0-31.2); Mean Corpuscular Volume 98.8 fl (81-99); Mean Platelet Volume 9.2 fl (7.4-10.4); Monocytes # 0.2 K/mm3 (0.1-1.0); Monocytes % 4.6 % (1.7-9.3); Neutrophils # 2.8 K/mm3 (1.8-7.8); Neutrophils % 54.1 % (37.0-80.0); Platelet Count 287 K/mm3 (142-424); Red Blood Count 3.77 M/mm3 (4.20-5.40); Red Cell Distribution Width 13.9 % (11.5-17.5); White Blood Count 5.3 K/mm3 (4.8-10.8)
[2023-06-15 17:47] LABS: Appearance,Urine CLEAR (Clear); Blood, Urine Negative (Negative); Color,Urine AMBER (Yellow); Glucose,Urine (UA) Negative (Negative); Ketones,Urine Negative (Negative); Leukocyte Esterase,Urine TRACE (Negative); Nitrate,Urine Negative (Negative); PH,Urine 8.5 (5.0-8.5); Protein,Urine 2+ (Negative); Specific Gravity, Urine 1.015 (1.005-1.030)
[2023-06-15 17:50] LABS: Chloride 107 mmol/L (98-107); Potassium 3.3 mmoL/L (3.5-5.1); Sodium 140 mmol/L (136-145)
[2023-06-15 17:52] LABS: Bilirubin,Urine 3+ (Negative)
[2023-06-15 17:53] LABS: Alanine Aminotransferase 598 U/L (12-78); Albumin Level 4.3 g/dl (3.5-5.0); Albumin/Globulin Ratio 1.4 (1.1-1.8); Alkaline Phosphatase 126 U/L (38-126); Anion Gap 4.3 mEq/L (5-15); Aspartate Amino Transferase 509 U/L (14-36); Bilirubin,Total 3.4 mg/dl (0.2-1.3); Blood Urea Nitrogen 11 mg/dl (7-17); Calcium 8.9 mg/dl (8.4-10.2); Carbon Dioxide 32 mmol/L (22.0-30.0); Creatinine Clearance Estimated 151 mL/min (50-200); Estimated Glomerular Filt Rate 86 ml/min (>60); GFR (African American) 104 ML/MIN (>60); Glucose 105 mg/dl (74-100); Lipase 88 U/L (23-300); Total Protein,Serum 7.3 g/dl (6.3-8.2)
--- NOTE | 2023-06-15 17:57 | PC.NURSE ---
DR HERNANDEZ AT BEDSIDE FOR US
[2023-06-15 18:02] LABS: Bacteria,Urine Trace /lpf; RBC,Urine Occasional #/hpf (0-3); WBC,Urine Occasional #/hpf (0-3)
--- NOTE | 2023-06-15 18:09 | PC.NURSE ---
DR HERNANDEZ AT BEDSIDE TO UPDATE PT ON POC
[2023-06-15 18:11] LABS: HCG,Quantitative < 2 mIU/ml (0-5.42)
--- NOTE | 2023-06-15 18:14 | HMH.EDGENADL ---
Discharge Plan Disposition Patient Disposition: Xfer Short-Term Hosp Chief Complaint: Abdominal Pain Prescriptions Prescriptions: No Action No Known Home Medications Referrals Follow up/Referrals: Gretchen Gilmore APRN [Primary Care Provider] - See instructions Clinical Impressions Clinical Impression: Choledocholithiasis Instructions Patient Instructions: DI for Acute Abdominal Pain Discharge ED Provider: Federico Lawrence General Adult HPI General Chief complaint: Abdominal Pain Stated complaint: abd pain, vomiting, GOSS Time Seen by Provider: 06/15/23 17:14 Mode of Arrival: Family Vehicle Source of Information: Patient and Medical Record Limitations: No Limitations Description of Symptoms (Recalled from ER Triage Doc. by RN): Pt c/o upper ABD pain and nausea. States she was seen here on 06/10 and had an U/S and CT completed and had a gallstone. Pt had to leave to go to work, although she was referred to General surgery and has an appt with Dr. Grant on . States her pain and nausea has worsened, she has been itching at 1 spot so bad I got a sore , to her Left upper chest. Also notes her urine is now a burnt orange color. States she is drinking Sprite and eating crackers. Denies fever. History of Present Illness HPI narrative: 22-year-old female history of tubal ligation, symptomatic cholelithiasis presenting with abdominal pain. Patient states that the abdominal pain has been getting worse over the past couple of days. Is supposed to have surgery follow-up on with Dr. Grant, but pain has been getting worse to the point where she cannot stand it. It is right upper quadrant, radiates around right side of her chest/upper abdomen and into her right flank. Denies fevers or chills, but has had vomiting and dark orange/red urine. No vaginal discharge or bleeding. Last bowel movement was today and was normal for her. Related Data Home Medications Medication Instructions Recorded Confirmed No Known Home Medications 02/25/23 02/25/23 Allergies Allergy/AdvReac Type Severity Reaction Status Date / Time Penicillins Allergy Severe rash Verified 02/25/23 11:09 [facility] Disclaimer: The information contained in this section may have been updated after the patient was seen, as this information can be updated by other users. 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 37 weeks gestation of Active labor History of gestational diabetes in prior , currently History of hemorrhage, currently Large for gestational age fetus affecting management of mother hemorrhage Pre-diabetes Tobacco use affecting , antepartum Surgical History No history of previous surgery Family History Mother Diabetes Other Cancer Hypertension Social History Smoking Status: Current every day smoker tobacco type: cigarettes alcohol intake: former substance use type: denies use current occupational status: employed Travel in the last 8 weeks: None ROS Obtained: Yes All systems reviewed & no additional complaints except as documented Physical Exam General General appearance: alert and in no apparent distress Head Head exam: atraumatic and normocephalic Eye Eye exam: Present normal appearance, PERRL and EOMI ENT ENT exam: Present mucous membranes moist Neck Neck exam: Present normal inspection, full ROM and trachea midline Respiratory Respiratory exam: Absent respiratory distress, wheezes, stridor, accessory muscle use or prolonged expiratory phase Cardiovascular Cardiovascular exam: Present normal rhythm Abdominal Exam Abdominal exam: Present soft, tenderness and Huntley's sign; Absent distention, guarding, rebound or rigidity Abdominal tenderness: Present mild Extremities Exam Extremities exam: Absent edema Neurological Exam Neurological exam: Present alert, oriented X3, CN II-XII intact and normal gait; Absent motor sensory deficit Skin Skin exam: Present warm and dry; Absent diaphoresis or erythema Medical Decision Making Medical Records Medical records reviewed: Yes I reviewed the patient's medical records. Mychal Inquiry Pt receiving controlled substance: No Mychal was queried for this patient: No Vital Signs: 06/15/23 17:12 06/15/23 17:42 06/15/23 18:18 Temperature 98.6 F Temperature Source Oral Pulse Rate 64 69 Pulse Rate [Right] 78 Respiratory Rate 18 Blood Pressure 113/82 129/82 Blood Pressure [Right Arm] 138/91 H Blood Pressure Mean [Right Arm] 106 Blood Pressure Source [Right Arm] Automatic Cuff 02 Sat by Pulse Oximetry 98 100 100 Oxygen Delivery Method Room Air Room Air Room Air 06/15/23 18:31 Temperature Temperature Source Pulse Rate 63 Pulse Rate [Right] Respiratory Rate Blood Pressure 119/73 Blood Pressure [Right Arm] Blood Pressure Mean [Right Arm] Blood Pressure Source [Right Arm] 02 Sat by Pulse Oximetry 99 Oxygen Delivery Method Room Air Lab Data Lab Results 06/15/23 17:25: WBC 5.3, RBC 3.77 L, Hgb 12.2, Hct 37.2, MCV 98.8, MCH 32.5 H, MCHC 32.8, RDW 13.9, Plt Count 287, MPV 9.2, Neut % (Auto) 54.1, Lymph % (Auto) 37.7, Limestone % (Auto) 4.6, Eos % (Auto) 2.9, Baso % (Auto) 0.7, Neut # (Auto) 2.8, Lymph # (Auto) 2.0, Limestone # (Auto) 0.2, Eos # (Auto) 0.2, Baso # (Auto) 0.0, Sodium 140, Potassium 3.3 L, Chloride 107, Carbon Dioxide 32 H, Anion Gap 4.3 L, BUN 11, Creatinine 0.80, Estimated Creat Clear 151, Estimated GFR 86, Est GFR ( Amer) 104, Glucose 105 H, Calcium 8.9, Total Bilirubin 3.4 H, Direct Bilirubin 2.4 H, AST 509 H*, ALT 598 H*, Alkaline Phosphatase 126, Total Protein 7.3, Albumin 4.3, Globulin 3.0, Albumin/Globulin Ratio 1.4, Lipase 88, HCG, Quant < 2 06/15/23 17:30: Urine Color Kayley, Urine Appearance Clear, Urine pH 8.5, Ur Specific Hartman 1.015, Urine Protein 2+, Urine Glucose (UA) Negative, Urine Ketones Negative, Urine Blood Negative, Urine Nitrate Negative, Urine Bilirubin 3+ A, Urine Urobilinogen 2.0, Ur Leukocyte Esterase Trace, Urine RBC Occasional, Urine WBC Occasional, Ur Squamous Epith Cells 10-20, Urine Bacteria Trace 06/15/23 17:25 06/15/23 17:25 Orders (Tests/Meds): ED MEDICATIONS Discontinued Medications Generic Name Dose Route Start Last Admin Trade Name Freq PRN Reason Stop Dose Admin Acetaminophen 1,000 mg 06/15/23 17:28 06/15/23 17:43 Acetaminophen 1,000mg/100ml Vial IV 06/15/23 17:29 1,000 mg ONCE ONE Administration Lactated Ringer's 1,000 mls @ 999 mls/hr 06/15/23 17:28 06/15/23 17:42 Lactated Ringer's 1000 Ml Bag IV 06/15/23 18:28 999 mls/hr .Q1H1M ONE Administration Cefepime HCl 2 gm/ Sodium 100 mls @ 200 mls/hr 06/15/23 18:06 06/15/23 18:17 Chloride IV 06/15/23 18:35 200 mls/hr ONCE ONE Administration Metronidazole 500 mg in 100 mls @ 100 mls/hr 06/15/23 18:06 06/15/23 18:57 Flagyl 500mg/100ml Ivpb IV 06/15/23 19:05 100 mls/hr ONCE ONE Administration Ketorolac Tromethamine 15 mg 06/15/23 17:28 06/15/23 17:43 Ketorolac 30mg/Ml Vial IV 06/15/23 17:29 15 mg ONCE ONE Administration Ondansetron HCl 4 mg 06/15/23 17:28 06/15/23 17:43 Ondansetron 4mg/2ml Vial IV 06/15/23 17:29 4 mg ONCE ONE Administration ORDERS Category Date Time Status POCUS Point of Care (ER Only) Stat Exams 06/15/23 17:30 Ordered Bilirubin,Direct Stat Lab 06/15/23 17:25 Completed Complete Blood Count Auto Diff Stat Lab 06/15/23 17:25 Completed Comprehensive Metabolic Panel Stat Lab 06/15/23 17:25 Completed HCG,Quantitative Stat Lab 06/15/23 17:25 Completed Lipase Stat Lab 06/15/23 17:25 Completed Urinalysis and Microscopic Stat Lab 06/15/23 17:30 Completed Medical Decision Narrative: 22-year-old female history of tubal ligation, symptomatic cholelithiasis presenting with abdominal pain. Patient states that the abdominal pain has been getting worse over the past couple of days. Is supposed to have surgery follow-up on with Dr. Grant, but pain has been getting worse to the point where she cannot stand it. It is right upper quadrant, radiates around right side of her chest/upper abdomen and into her right flank. Denies fevers or chills, but has had vomiting and dark orange/red urine. No vaginal discharge or bleeding. Last bowel movement was today and was normal for her.. History was obtained via conversation with patient. On arrival, patient hemodynamically stable, alert, oriented x4, appropriate, GCS 15, moving all extremities spontaneously, pupils equal and reactive to light. Full physical exam performed and significant for well-appearing woman in no acute distress. Mild abdominal tenderness in the right upper quadrant, no evidence of peritonitis. No flank tenderness. No overlying skin changes. Differential includes PUD, gastritis, enteritis, gastroenteritis, pancreatitis, SBO, colitis, diverticulitis, nephrolithiasis, UTI, , cholecystitis, choledocholithiasis, appendicitis, hepatitis, torsion, aortic pathology, mesenteric ischemia among others. Patient was given Toradol, Bradshaw of, fluids for symptomatic management and correction of underlying abnormalities. Workup independently interpreted and significant for UA resulted first with bilirubin in the urine. No leukocytosis on CBC. Mild hypokalemia 3.3, kidney function within normal limits. Patient's LFTs are elevated from just 5 days prior. Bilirubin 3.4, AST 549, ALT 598, alkaline phosphatase upper end of normal 126. Lipase negative, negative. Bedside ultrasound with cholelithiasis without secondary signs of cholecystitis. Common bile duct within normal limits. CT abdomen pelvis was considered, but deemed unnecessary due to diagnostic labs, imaging, physical exam. She also had a recent CT abdomen pelvis, which I independently interpreted without acute concern for any other intra-abdominal pathology. On reevaluation, patient resting comfortably and has no pain. [facility] was [facility], case was discussed at length. Patient does not have ability to be transferred there because they do not have GI capabilities. [facility] was contacted and case was discussed at length, they graciously excepted transfer. Given patient presentation, workup, history, this most likely represents choledocholithiasis in the setting of symptomatic cholelithiasis. Because patient high risk for clinical decompensation if discharged, deemed appropriate for transfer and inpatient admission. Results were relayed to patient who voiced understanding and patient was agreeable to transfer, inpatient admission, and management. Patient was graciously accepted and transferred to [facility] for further definitive management, under Dr. Payne. Procedures Limited Ultrasound Indication:: Limited RUQ ultrasound Indication: Abdominal pain, vomiting, dark urine Identified structures: -Gallbladder -Gallbladder wall -Common bile duct -Liver Findings: Sonographic Huntley sign: Present Gallstones: Present Sludge: Absent Pericholecystic fluid: Absent Maximal GB wall thickness (mm) (normal is </= 3mm): Normal Common bile duct width (mm) (normal is </= 6mm): Normal Gallbladder width (cm) (normal is < 4cm): Normal Gallbladder length (cm) (normal is < 10cm): Abnormal, greater than 11 cm Impression: Distended gallbladder with stones present in the fundus. No secondary signs of cholecystitis other than sonographic Huntley sign Images were saved to permanent archive The study was technically adequate CPT 03999-71 This study was performed by me, and I personally interpreted all images/videos. Based on my clinical judgement, these images were adequate and did not necessitate further imaging. Critical Care Critical Care Time Critical Care Time: Yes (GI) Attestation: On 06/15/23, the high probability of a clinically significant, sudden or life threatening deterioration of the following system(s) required my full and direct attention, intervention and personal management. The time I documented below is in addition to time spent performing reported procedures but includes the following listed in this critical care notation. Total Time Total Critical Care Time: 45
--- NOTE | 2023-06-15 18:16 | PC.NURSE ---
Called [facility] for possible transfer. 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
[2023-06-15] MEDS: CEFEPIME HCL 2 GM in 0.9 % SODIUM CHLORIDE 100 ML IV (18:17)
[2023-06-15 18:27] LABS: Bilirubin,Direct 2.4 mg/dl (0.0-0.4)
--- NOTE | 2023-06-15 18:51 | PC.NURSE ---
[facility] denied pt due to not having capabilities
--- NOTE | 2023-06-15 18:56 | PC.NURSE ---
Waiting medical oncologist back from [facility] at this time
[2023-06-15] MEDS: METRONIDAZ/SOD CHL 500 MG/100 ML PIGGYBACK 100 MG IV (18:57)
--- NOTE | 2023-06-15 19:24 | PC.NURSE ---
[facility] called back with Dr. MOONEY for Dr. Lawrence
--- NOTE | 2023-06-15 19:39 | PC.NURSE ---
ED doctor on phone with general surgery @ [facility]
--- NOTE | 2023-06-15 19:49 | PC.NURSE ---
Attempted to call report to [facility] at this time. They state they would like me to call back in 10 minutes.
--- NOTE | 2023-06-15 20:06 | PC.NURSE ---
v/o received from provider for pain medication. morphine 4mg ivp x 1.
[2023-06-15] MEDS: MORPHINE 4MG/ML SYRINGE 4 MG IV (20:09)
--- NOTE | 2023-06-15 20:25 | PC.NURSE ---
call placed to [facility] by christina
[2023-06-15] MEDS: LACTATED RINGERS 1000ML 1,000 ML 125 ML IV (20:30)
--- NOTE | 2023-06-15 20:39 | PC.NURSE ---
Report called to [facility] @2019
== END 2023-06-15 20:57 | disposition short-term general hospital (02) ==
PROVIDERS: Emergency Provider Emergency Medicine; PCP Nurse Practitioner Family
DX: K80.50 Calculus of bile duct without cholangitis or cholecystitis without obstruction (principal); R10.11 Right upper quadrant pain; R11.2 Nausea with vomiting, unspecified; F17.210 Nicotine dependence, cigarettes, uncomplicated
CPT/HCPCS: 80053; 81001; 82248; 83690; 84702; 85025; 96361; 96365; 96368; 96375; 99291; J0131; J2405

== ENCOUNTER 2023-10-13 14:15 | Emergency (ER) | payer MEDICAID, SELFPAY ==
[2023-10-13 15:05] VITALS: BP 134/81; PULSE 78; RESP 18; TEMP 36.9; O2SAT 100; BMI 36.4
--- NOTE | 2023-10-13 16:24 | EXP.UTC ---
Discharge Plan Disposition Patient Disposition: Home, Self-Care Condition: Good Prescriptions Prescriptions: New azithromycin 250 mg tablet 250 mg PO DIRECTED Qty: 6 0RF Rx Instructions: Take two (2) tablets on day #1, then one (1) tablet day #2 thru #5 Referrals Follow up/Referrals: Provider,Referral, MD [Primary Care Provider] - See instructions Activity Restrictions/Add. Instructions Additional Instructions/Restrictions: Start antibiotics today be sure to take it as ordered with the full length of time although you should start feeling better in 24-48 hours. Change toothbrush and toothpaste 24-48 hours after starting antibiotics Tylenol or Motrin as needed for fever or pain Encourage fluids, water, Gatorade, Powerade, try cold fluids, popsicles, ice cream will make it feel better You are contagious for 24 hours. Avoid kissing anyone, no eating or drinking after anyone. You are contagious. Follow-up the ER for new or worsening symptoms or no noticeable improvement over the next 24-48 hours. Follow-up with PCP this week. Clinical Impressions Clinical Impression: Strep sore throat Stand Alone Forms Stand Alone Forms: Work/School Release Instructions Patient Instructions: DI for Strep Throat Discharge ED Provider: Shantal ([facility]Arjun [facility] [place] General Stated complaint: sore throat Mode of Arrival: Ambulatory Source of Information: Patient Limitations: No Limitations Time Seen by Provider: 10/13/23 16:24 Description of Symptoms (Recalled from Triage Doc. by RN): Pt's symptoms are sore throat. HEENT Symptoms (Recalled from RN notes): Yes Resp Symptoms (Recalled from RN notes): No Skin Symptoms (Recalled from RN notes): No MS Symptoms (Recalled from RN notes): No Functional Status (Recalled from RN notes): n/a History of Present Illness Provider Complaint: 28 yr old male presnets for sore throat Related Data Previous Rx's Medication Instructions Recorded azithromycin 250 mg tablet 250 mg PO DIRECTED #6 tabs 10/13/23 Allergies Allergy/AdvReac Type Severity Reaction Status Date / Time Penicillins Allergy Severe rash Verified 10/13/23 15:19 Worker's Comp Is this a Worker's Comp case?: No [facility] Disclaimer: The information contained in this section may have been updated after the patient was seen, as this information can be updated by other users. 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 (Reviewed 10/13/23 @ 16:24 by Arjun Murguia ([facility]), ASSISTANT PROFESSOR OF MATHEMATICS) hemorrhage History of hemorrhage, currently Active labor 37 weeks gestation of Tobacco use affecting , antepartum History of gestational diabetes in prior , currently Large for gestational age fetus affecting management of mother Pre-diabetes Surgical History (Reviewed 10/13/23 @ 16:24 by Arjun Murguia ([facility]), ASSISTANT PROFESSOR OF MATHEMATICS) No history of previous surgery Family History (Reviewed 10/13/23 @ 16:24 by Arjun Murguia ([facility]), ASSISTANT PROFESSOR OF MATHEMATICS) Diabetes Mother Cancer Hypertension Social History (Reviewed 10/13/23 @ 16:24 by Arjun Murguia ([facility]), ASSISTANT PROFESSOR OF MATHEMATICS) Smoking Status: Current every day smoker tobacco type: cigarettes alcohol intake: former substance use type: denies use current occupational status: employed Travel in the last 8 weeks: None ROS Obtained: Yes All systems reviewed & no additional complaints except as documented Constitutional Constitutional: Reports system reviewed and no additional complaints, except as documented Eyes Eyes: Reports system reviewed and no additional complaints, except as documented ENT Ears, Nose, Mouth, and Throat: Reports system reviewed and no additional complaints, except as documented, Reports as per HPI and Reports sore throat Cardiovascular Cardiovascular: Reports system reviewed and no additional complaints, except as documented Respiratory Respiratory: Reports system reviewed and no additional complaints, except as documented Gastrointestinal Gastrointestingal: Reports system reviewed and no additional complaints, except as documented Musculoskeletal Musculoskeletal: Reports system reviewed and no additional complaints, except as documented Integumentary/Breasts Skin/Breast: Reports system reviewed and no additional complaints, except as documented Endocrine Endocrine: Reports system reviewed and no additional complaints, except as documented Allergic/Immunologic Allergic/Immunologic: Reports system reviewed and no additional complaints, except as documented Physical Exam General General appearance: alert and in no apparent distress Head Head exam: atraumatic Eye Eye exam: Present normal appearance and PERRL ENT ENT exam: Present mucous membranes moist Expanded ENT Exam Throat exam: Present tonsillar erythema, tonsillomegaly and tonsillar exudate Respiratory Respiratory exam: Present normal lung sounds bilaterally Cardiovascular Cardiovascular exam: Present regular rate and normal rhythm Neurological Exam Neurological exam: Present alert and oriented X3 Skin Skin exam: Present warm and intact Medical Decision Making Medical Records Medical records reviewed: Yes I reviewed the patient's medical records. Mychal Inquiry Pt receiving controlled substance: No Mychal was queried for this patient: No Vital Signs: 10/13/23 15:05 Temperature 98.4 F Temperature Source Oral Pulse Rate [Right Radial] 78 Respiratory Rate 18 Blood Pressure [Right Arm] 134/81 Blood Pressure Mean [Right Arm] 98 Blood Pressure Source [Right Arm] Automatic Cuff Blood Pressure Position [Right Arm] Sitting 02 Sat by Pulse Oximetry 100 Oxygen Delivery Method Room Air Lab Data Lab results reviewed: Yes I reviewed the patient's lab results.
[2023-10-13 16:44] LABS: UTC Strep Screen (Rapid) Negative (Negative)
[2023-10-13 17:07] VITALS: BP 134/81; PULSE 78; RESP 18; TEMP 36.9; O2SAT 100
--- NOTE | 2023-10-15 10:18 | PC.NURSE ---
Reviewed strep confirmation culture is negative. No further action is required.
== END 2023-10-13 17:07 | disposition home or self-care (01) ==
PROVIDERS: Emergency Provider Nurse Practitioner Family
DX: J02.0 Streptococcal pharyngitis (principal)
CPT/HCPCS: 87880; 99204; 99212; G0463

== ENCOUNTER 2023-12-15 17:55 | Emergency (ER) | payer MEDICAID, SELFPAY ==
--- NOTE | 2023-12-15 19:08 | EXP.UTC ---
Discharge Plan Disposition Patient Disposition: Home, Self-Care Condition: Good Prescriptions Prescriptions: New azithromycin [Zithromax] 250 mg tablet 250 mg PO UD DOSE PK Qty: 6 0RF Rx Instructions: Take two (2) tablets today, then one (1) tablet days #2 thru #5 benzonatate 100 mg capsule 100 mg PO TIDP PRN (Reason: Cough) Qty: 30 0RF No Action azithromycin 250 mg tablet 250 mg PO DIRECTED Qty: 6 0RF Rx Instructions: Take two (2) tablets on day #1, then one (1) tablet day #2 thru #5 Referrals Follow up/Referrals: Provider,Referral, MD [Primary Care Provider] - See instructions Activity Restrictions/Add. Instructions Additional Instructions/Restrictions: Drink plenty of fluids. Take tylenol or ibuprofen for pain or fever. Take the medications as directed. Follow up with your regular doctor. GO TO THE ER FOR ANY WORSENING SYMPTOMS Clinical Impressions Clinical Impression: Otitis media, Pharyngitis, Acute viral syndrome Stand Alone Forms Stand Alone Forms: Work/School Release Instructions Patient Instructions: DI for Pharyngitis/Tonsillopharyngitis -- Adult Print Language Print Language: Slovenian Discharge ED [place] [facility] [place] General Stated complaint: body aches,congestion,cough,ears hurt Time Seen by Provider: 12/15/23 19:08 Related Data Previous Rx's ?Medication ?Instructions ?Recorded azithromycin 250 mg tablet 250 mg PO DIRECTED #6 tabs 10/13/23 azithromycin 250 mg tablet 250 mg PO UD DOSE PK #6 tabs 12/15/23 (Zithromax) benzonatate 100 mg capsule 100 mg PO TIDP PRN Cough #30 caps 12/15/23 Allergies Allergy/AdvReac Type Severity Reaction Status Date / Time Penicillins Allergy Severe rash Verified 10/13/23 15:[address] [facility] Disclaimer: The information contained in this section may have been updated after the patient was seen, as this information can be updated by other users. 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) Smoking Status: Current every day smoker tobacco type: cigarettes alcohol intake: former substance use type: denies use current occupational status: employed Travel in the last 8 weeks: None ROS Obtained: Yes All systems reviewed & no additional complaints except as documented Constitutional Constitutional: Reports chills and Reports fever(s) Eyes Eyes: Denies eye discharge ENT Ears, Nose, Mouth, and Throat: Reports as per HPI Cardiovascular Cardiovascular: Denies chest pain Respiratory Respiratory: Denies chest congestion and Reports cough Gastrointestinal Gastrointestingal: Reports nausea; Denies abdominal pain, constipation, cramping, diarrhea or vomiting Musculoskeletal Musculoskeletal: Denies arthralgias Integumentary/Breasts Skin/Breast: Denies rash Neurologic Neurologic: Denies paresthesias Physical Exam General General appearance: alert and in no apparent distress Head Head exam: atraumatic, normocephalic and normal inspection Eye Eye exam: Present normal appearance, PERRL and EOMI ENT ENT exam: Present mucous membranes moist and normal external ear exam Expanded ENT Exam TM/Canal exam: Bilateral TM: erythema and bulging Nose exam: Absent sinus tenderness Mouth exam: Present normal external inspection; Absent drooling Teeth exam: Pr
[2023-12-15 19:19] VITALS: BP 128/80; PULSE 95; RESP 18; TEMP 36.9; O2SAT 97; BMI 34.3
[2023-12-15 19:25] LABS: UTC Strep Screen (Rapid) Negative (Negative)
[2023-12-15 20:03] VITALS: BP 128/80; PULSE 95; RESP 18; TEMP 36.9; O2SAT 97
== END 2023-12-15 20:03 | disposition home or self-care (01) ==
PROVIDERS: Emergency Provider Nurse Practitioner Family
DX: U07.1 COVID-19 (principal); H66.93 Otitis media, unspecified, bilateral; J02.9 Acute pharyngitis, unspecified
CPT/HCPCS: 87635; 87880; 99212; 99214; G0463

== ENCOUNTER 2024-02-26 20:53 | Emergency (ER) | payer MEDICAID, SELFPAY ==
--- NOTE | 2024-02-26 21:24 | HMH.EDGENADL ---
Discharge Plan Disposition Patient Disposition: Home, Self-Care Condition: Fair Prescriptions Prescriptions: New clindamycin HCl 300 mg capsule 300 mg PO TID 5 Days Qty: 15 0RF No Action azithromycin 250 mg tablet 250 mg PO DIRECTED Qty: 6 0RF Rx Instructions: Take two (2) tablets on day #1, then one (1) tablet day #2 thru #5 azithromycin [Zithromax] 250 mg tablet 250 mg PO UD DOSE PK Qty: 6 0RF Rx Instructions: Take two (2) tablets today, then one (1) tablet days #2 thru #5 benzonatate 100 mg capsule 100 mg PO TIDP PRN (Reason: Cough) Qty: 30 0RF Referrals Follow up/Referrals: Provider,Referral, MD [Primary Care Provider] - See instructions Activity Restrictions/Add. Instructions Additional Instructions/Restrictions: Follow-up with dentistry as soon as possible to have your tooth extracted. Take antibiotics as prescribed. Return to the emergency department if you develop fevers, difficulty swallowing, difficulty breathing or become concerned for your health. Take 1000 mg of Tylenol and 800 mg of ibuprofen alternating every 3 hours, ensuring that the medicines themselves are 6 hours apart. Clinical Impressions Clinical Impression: Pain, dental Print Language Print Language: Armenian Discharge ED Provider: Chris Oliveira Adult HPI General Chief complaint: Dental/Oral Stated complaint: dental pain Time Seen by Provider: 02/26/24 21:23 History of Present Illness HPI narrative: Patient is a 28-year-old female with no significant past medical history. She is presenting for dental pain for the last year. She reports that it is primarily located in the mandibular region on the right. She reports that there is a broken tooth there. She has not taken any antibiotics. She denies any fevers, pus drainage. She denies any difficulty swallowing or difficulty breathing. She has not seen a dentist for this. Related Data Previous Rx's ?Medication ?Instructions ?Recorded azithromycin 250 mg tablet 250 mg PO DIRECTED #6 tabs 10/13/23 azithromycin 250 mg tablet 250 mg PO UD DOSE PK #6 tabs 12/15/23 (Zithromax) benzonatate 100 mg capsule 100 mg PO TIDP PRN Cough #30 caps 12/15/23 clindamycin HCl 300 mg capsule 300 mg PO TID 5 days #15 caps 02/26/24 Allergies Allergy/AdvReac Type Severity Reaction Status Date / Time Penicillins Allergy Severe rash Verified 10/13/23 15:19 [facility] Disclaimer: The information contained in this section may have been updated after the patient was seen, as this information can be updated by other users. 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 (Reviewed 10/13/23 @ 16:24 by Arjun Murguia ([facility]), ENGRAVER AUTOMATIC) hemorrhage History of hemorrhage, currently Active labor 37 weeks gestation of Tobacco use affecting , antepartum History of gestational diabetes in prior , currently Large for gestational age fetus affecting management of mother Pre-diabetes Surgical History (Reviewed 10/13/23 @ 16:24 by Arjun Murguia ([facility]), [employer]OM[employer]) No history of previous surgery Family History (Reviewed 10/13/23 @ 16:24 by Arjun Murguia ([facility]), ENGRAVER AUTOM[employer]IC) Diabetes Mother Cancer Hypertension Social History (Reviewed 10/13/23 @ 16:24 by Arjun Murguia ([facility]), ENGRA[employer]OM[employer]IC) Smoking Status: Current every day smoker tobacco type: cigarettes alcohol intake: former substance use type: denies use current occupational status: employed Travel in the last 8 weeks: None Other 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 Have you received the Flu Vaccine for this season: No Have you received the Pneumonia Vaccine: No ROS Obtained: Yes All systems reviewed & no additional complaints except as documented Physical Exam General General appearance: alert and in no apparent distress Head Head exam: atraumatic and normocephalic Eye Eye exam: Present normal appearance ENT ENT exam: Present mucous membranes moist and other (Poor dentition diffusely. Over the right mandibular molar, there is some scant erythema with no focal area of swelling. Exquisitely tender to that area. No fracture noted on my exam. She has no trismus. No crepitus in the floor of the mouth. Oropharynx is clear.) Neck Neck exam: Present normal inspection and full ROM; Absent tenderness, meningismus or lymphadenopathy Chest Chest inspection: Present symmetric chest wall rise Respiratory Respiratory exam: Absent respiratory distress or stridor Cardiovascular Cardiovascular exam: Present regular rate and normal rhythm Abdominal Exam Abdominal exam: Absent distention Extremities Exam Extremities exam: Present normal inspection Neurological Exam Neurological exam: Present alert, oriented X3 and CN II-XII intact Psychiatric Psychiatric exam: Present normal mood Skin Skin exam: Present warm and dry Medical Decision Making Medical Records Screening: Per USPSTF and CDC recommendations, given the prevalence of disease in our region, it is our hospital?s policy to screen for HIV and viral Hepatitis for all patients aged 18 and over and those with ongoing risk factors. Mychal Inquiry Pt receiving controlled substance: No Vital Signs: 02/26/24 21:37 02/26/24 22:20 Temperature 98.3 F 98.2 F Temperature Source Oral Pulse Rate 74 Pulse Rate [Left Radial] 70 Respiratory Rate 18 20 Blood Pressure 136/92 H Blood Pressure [Right Arm] 136/92 H Blood Pressure Mean [Right Arm] 106 Blood Pressure Source [Right Arm] Automatic Cuff 02 Sat by Pulse Oximetry 100 Oxygen Delivery Method Room Air Room Air Orders (Tests/Meds): ED MEDICATIONS Discontinued Medications Generic Name Dose Route Start Last Admin Trade Name Antonio PRN Reason Stop Dose Admin Ketorolac Tromethamine 15 mg 02/26/24 21:35 02/26/24 21:49 Ketorolac 30mg/Ml Vial IM 02/26/24 21:36 15 mg ONCE ONE Administration Lidocaine HCl 15 ml 02/26/24 21:35 02/26/24 21:48 Lidocaine 2% Viscous Jessica 15ml Udc PO 02/26/24 21:36 15 ml ONCE ONE Administration Medical Decision Narrative: In summary, this 28-year-old female presents to the emergency department today with dental pain. On initial evaluation patient is afebrile, hemodynamically stable in no acute distress. On exam, she has tenderness over the right mandibular molar. There is a scant area of erythema there, but no drainable abscess noted on my physical exam. No signs of Sean's angina, moving neck freely, no lymphadenopathy. Oropharynx is clear. I considered the utility of obtaining a CT face to evaluate further, however felt that risks outweigh benefits given clinical exam is very reassuring with no trismus or other concerning findings on physical exam.. Differential diagnosis includes but is not limited to periapical abscess, dental pain, Sean's angina. Patient treated with Toradol symptomatically and a dental ball. On reassessment, she reports improvement of pain. She is offered a mental block, however she refuses this at this time as believe she can manage outpatient. Will discharge with a short course of clindamycin and instructions to follow-up with a dentist here or [facility] walk-in dental clinic for expedited care. She is amenable to plan all questions answered instructed to precautions are given. At this time it was felt that the patient was safe to be discharged home. The patient was in agreement with this plan. The patient was given strict return precautions prior to being discharged from the emergency department.] Critical Care Critical Care Time Critical Care Time: No
[2024-02-26 21:37] VITALS: BP 136/92; PULSE 70; RESP 18; TEMP 36.8; O2SAT 100; BMI 33.9
[2024-02-26] MEDS: LIDOCAINE 2% VISCOUS SOL 15ML UDC 15 ML PO (21:48)
[2024-02-26] MEDS: KETOROLAC 30MG/ML VIAL 15 MG IM (21:49)
[2024-02-26 22:20] VITALS: BP 136/92; PULSE 74; RESP 20; TEMP 36.8; O2SAT 100
== END 2024-02-26 22:24 | disposition home or self-care (01) ==
PROVIDERS: Emergency Provider Emergency Medicine
DX: K08.89 Other specified disorders of teeth and supporting structures (principal)
CPT/HCPCS: 96372; 99283; J1885

== ENCOUNTER 2024-03-28 01:41 | Emergency (ER) | payer MEDICAID, SELFPAY ==
[2024-03-28 01:47] VITALS: BP 133/90; PULSE 97; RESP 20; TEMP 36.7; O2SAT 100; BMI 32.3
--- NOTE | 2024-03-28 01:49 | HMH.EDGENADL ---
Discharge Plan Disposition Patient Disposition: Home, Self-Care Prescriptions Prescriptions: No Action azithromycin 250 mg tablet 250 mg PO DIRECTED Qty: 6 0RF Rx Instructions: Take two (2) tablets on day #1, then one (1) tablet day #2 thru #5 azithromycin [Zithromax] 250 mg tablet 250 mg PO UD DOSE PK Qty: 6 0RF Rx Instructions: Take two (2) tablets today, then one (1) tablet days #2 thru #5 benzonatate 100 mg capsule 100 mg PO TIDP PRN (Reason: Cough) Qty: 30 0RF clindamycin HCl 300 mg capsule 300 mg PO TID 5 Days Qty: 15 0RF Referrals Follow up/Referrals: Provider,Referral, MD [Primary Care Provider] - See instructions Activity Restrictions/Add. Instructions Additional Instructions/Restrictions: Please follow-up with your primary care provider. Please return to the emergency department if you develop any new or worsening symptoms or become concerned for your health. Clinical Impressions Clinical Impression: Foreign body in ear Qualifiers: Encounter type: initial encounter Laterality: left Qualified Code(s): T16.2XXA - Foreign body in left ear, initial encounter Print Language Print Language: Latvian Discharge ED Provider: Ralph Alarcon General Adult HPI General Chief complaint: Ear Stated complaint: L ear pain, feels like something is in it Time Seen by Provider: 03/28/24 01:49 History of Present Illness HPI narrative: 28-year-old female without significant past medical history presents for concern for bug in her left ear. She reports that happened about 30 minutes ago. She hears it moving. She is very concerned about it. Related Data Previous Rx's ?Medication ?Instructions ?Recorded azithromycin 250 mg tablet 250 mg PO DIRECTED #6 tabs 10/13/23 azithromycin 250 mg tablet 250 mg PO UD DOSE PK #6 tabs 12/15/23 (Zithromax) benzonatate 100 mg capsule 100 mg PO TIDP PRN Cough #30 caps 12/15/23 clindamycin HCl 300 mg capsule 300 mg PO TID 5 days #15 caps 02/26/24 Allergies Allergy/AdvReac Type Severity Reaction Status Date / Time Penicillins Allergy Severe rash Verified 10/13/23 15:19 [facility] Disclaimer: The information contained in this section may have been updated after the patient was seen, as this information can be updated by other users. 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 (Reviewed 10/13/23 @ 16:24 by Arjun Murguia ([facility]), SHELL ASSEMBLER) hemorrhage History of hemorrhage, currently Active labor 37 weeks gestation of Tobacco use affecting , antepartum History of gestational diabetes in prior , currently Large for gestational age fetus affecting management of mother Pre-diabetes Surgical History (Reviewed 10/13/23 @ 16:24 by Arjun Murguia ([facility]), SHELL ASSEMBLER) No history of previous surgery Family History (Reviewed 10/13/23 @ 16:24 by Arjun Murguia ([facility]), SHELL ASSEMBLER) Diabetes Mother Cancer Hypertension Social History (Reviewed 10/13/23 @ 16:24 by Arjun Murguia ([facility]), SHELL ASSEMBLER) Smoking Status: Current every day smoker tobacco type: cigarettes alcohol intake: former substance use type: denies use current occupational status: employed Travel in the last 8 weeks: None Other 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 Have you received the Flu Vaccine for this season: No Have you received the Pneumonia Vaccine: No ROS Obtained: Yes All systems reviewed & no additional complaints except as documented Physical Exam General General appearance: alert and in no apparent distress Head Head exam: atraumatic and normocephalic Eye Eye exam: Present normal appearance, PERRL and EOMI ENT ENT exam: Present normal oropharynx, normal external ear exam and other (Insect in the left ear) Neck Neck exam: Present normal inspection and full ROM Chest Chest inspection: Present normal inspection and symmetric chest wall rise; Absent tenderness Respiratory Respiratory exam: Present normal lung sounds bilaterally; Absent respiratory distress Cardiovascular Cardiovascular exam: Present regular rate and normal rhythm Abdominal Exam Abdominal exam: Present soft; Absent distention, tenderness or guarding Extremities Exam Extremities exam: Present normal inspection; Absent edema or joint swelling Back Exam Back exam: Present normal inspection; Absent tenderness Neurological Exam Neurological exam: Present alert and oriented X3; Absent motor sensory deficit Psychiatric Psychiatric exam: Present normal affect and normal mood Skin Skin exam: Present warm, dry and normal color Lymphatic Lymphatic Findings: no adenopathy Medical Decision Making Medical Records Medical records reviewed: Yes I reviewed the patient's medical records. Screening: Per USPSTF and CDC recommendations, given the prevalence of disease in our region, it is our hospital?s policy to screen for HIV and viral Hepatitis for all patients aged 18 and over and those with ongoing risk factors. Mychal Inquiry Pt receiving controlled substance: No Mychal was queried for this patient: No Vital Signs: 03/28/24 01:47 03/28/24 02:17 Temperature 98.0 F 97.9 F Temperature Source Temporal Artery Scan Tympanic Pulse Rate 85 Pulse Rate [Apical] 97 H Respiratory Rate 20 16 Blood Pressure 137/85 Blood Pressure [Right Arm] 133/90 Blood Pressure Mean [Right Arm] 104 02 Sat by Pulse Oximetry 100 Oxygen Delivery Method Room Air Room Air Lab Data Lab results reviewed: Yes I reviewed the patient's lab results. Medical Decision Narrative: 28-year-old female without significant past medical history presents with concern for an insect in her left ear. On exam patient does not fact have a live insect in her left ear. The ear was copiously flushed with saline and the bug was removed using forceps. On examination after removal of foreign body the TM is intact and without laceration. All of the parts of the insect were removed. Patient was discharged in stable condition. Procedures Risk/Benefits of Procedure(s) Were Explained: Yes Foreign Body Removal Site: left and ear Description of foreign body: insect Technique: removal with forceps and irrigation Confirmed by:: direct visualization Complications: none Post-procedure exam: awake, alert Neurovascular: no change from pre-procedure Critical Care Critical Care Time Critical Care Time: No
[2024-03-28 02:17] VITALS: BP 137/85; PULSE 85; RESP 16; TEMP 36.6; O2SAT 99
== END 2024-03-28 02:14 | disposition home or self-care (01) ==
PROVIDERS: Emergency Provider Emergency Medicine
DX: T16.2XXA Foreign body in left ear, initial encounter (principal); H92.02 Otalgia, left ear; W44.F4XA Insect entering into or through a natural orifice, initial encounter; Y93.9 Activity, unspecified; Y92.9 Unspecified place or not applicable
CPT/HCPCS: 69200; 99283

== ENCOUNTER 2024-05-28 08:30 | Emergency (ER) | payer MEDICAID, SELFPAY ==
[2024-05-28 08:32] VITALS: BP 128/94; PULSE 80; RESP 19; TEMP 37.2; O2SAT 100; BMI 34.3
[2024-05-28 08:37] VITALS: BP 128/94; PULSE 77; O2SAT 100
--- NOTE | 2024-05-28 08:41 | ED_ITS ---
Discharge Plan Disposition Patient Disposition: Home, Self-Care Condition: Good Chief Complaint: PAIN Prescriptions Prescriptions: No Action No Known Home Medications Referrals Follow up/Referrals: Provider,Referral, MD [Referring] - See instructions Activity Restrictions/Add. Instructions Additional Instructions/Restrictions: You may alternate taking 1000 mg of Tylenol and 800 mg of ibuprofen every 3 hours as needed for pain. Return to the emergency department if you develop fevers, worsening pain despite the Tylenol and ibuprofen, or if you become concerned for your health. Stay well-hydrated. Go to walk-in dentistry clinic if you are unable to get a dental appointment anywhere else. Please follow up with your primary care provider in 2-3 days. Please return to ED if your symptoms worsen, change in location, change in severity, new symptoms develop or if you become concerned for your health. Clinical Impressions Clinical Impression: Pain, dental, Odynophagia Print Language Print Language: Faroese Discharge ED Provider: Chris Oliveira Adult HPI General Chief complaint: PAIN Stated complaint: Toothache, feels like pill lodged in chest area Time Seen by Provider: 05/28/24 08:40 History of Present Illness HPI narrative: Patient is a 29-year-old female with no significant past medical history who presents today due to concern for tooth pain as well as odynophagia. Patient reports that yesterday, she began to have recurrence of her chronic maxillary dental pain. She has been unable to see dentist. She denies any fevers. Denies any trauma to the area. She reports that she has been trying Tylenol and ibuprofen once last night without any relief. She reports that she had leftover clindamycin from her last dental infection and took a pill this morning. She reports that she did not drink it with much water and reports that she feels the pill is stuck in her throat. She has had no trouble breathing, no stridor, no issues tolerating her secretions. She has been able to eat and drink since then, just with persistent burning sensation in the esophagus. Related Data Home Medications ?Medication ?Instructions ?Recorded ?Confirmed No Known Home Medications 05/28/24 05/28/24 Allergies Allergy/AdvReac Type Severity Reaction Status Date / Time Penicillins Allergy Severe rash Verified 05/28/24 09:20 [facility] Disclaimer: The information contained in this section may have been updated after the patient was seen, as this information can be updated by other users. 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 , LAB PACK CHEMIST) hemorrhage History of hemorrhage, currently Active labor 37 weeks gestation of Tobacco use affecting , antepartum History of gestational diabetes in prior , currently Large for gestational age fetus affecting management of mother Pre-diabetes Surgical History , LAB PACK CHEMIST) No history of previous surgery Family History , LAB PACK CHEMIST) Diabetes Mother Cancer Hypertension Social History Smoking Status: Current every day smoker tobacco type: cigarettes alcohol intake: former substance use type: denies use current occupational status: employed Travel in the last 8 weeks: None Have you lived/traveled outside [place] in past 30 days?: No Contact w/someone who lives/traveled outside US past 30 days?: No Exposure to someone with infectious disease in past 14 days?: No Do you have a fever (greater than 100.4 F or 38 C)?: No Have you tested positive for COVID-19: No Exposed to someone with COVID-19 in past 14 days?: No Do you have a sore throat?: No Do you have a cough?: No Do you have any weakness?: No Do you have any diarrhea?: No Are you experiencing any unusual bleeding?: No Do you have any muscle aches/pain?: No Do you have any abdominal pain?: No Are you experiencing loss of taste or smell?: No Other 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 Have you received the Flu Vaccine for this season: No Have you received the Pneumonia Vaccine: No ROS Obtained: Yes All systems reviewed & no additional complaints except as documented Physical Exam General General appearance: alert and in no apparent distress Head Head exam: atraumatic and normocephalic Eye Eye exam: Present PERRL and EOMI ENT ENT exam: Present normal oropharynx Neck Neck exam: Present full ROM and trachea midline Chest Chest inspection: Present symmetric chest wall rise Respiratory Respiratory exam: Present normal lung sounds bilaterally; Absent stridor Cardiovascular Cardiovascular exam: Present regular rate and normal rhythm Abdominal Exam Abdominal exam: Present soft; Absent distention or tenderness Extremities Exam Extremities exam: Present full ROM Neurological Exam Neurological exam: Present alert and oriented X3 Psychiatric Psychiatric exam: Present normal mood Skin Skin exam: Present warm and dry Medical Decision Making Medical Records Screening: Per USPSTF and CDC recommendations, given the prevalence of disease in our region, it is our hospital?s policy to screen for HIV and viral Hepatitis for all patients aged 18 and over and those with ongoing risk factors. Mychal Inquiry Pt receiving controlled substance: No Vital Signs: 05/28/24 08:32 05/28/24 08:37 05/28/24 09:00 Temperature 99.0 F Temperature Source Oral Pulse Rate 77 62 Pulse Rate [Left Radial] 80 Respiratory Rate 19 Blood Pressure 128/94 H 109/77 L Blood Pressure [Right Arm] 128/94 H Blood Pressure Mean [Right Arm] 105 02 Sat by Pulse Oximetry 100 100 100 Oxygen Delivery Method Room Air Room Air Room Air 05/28/24 09:30 Temperature Temperature Source Pulse Rate 82 Pulse Rate [Left Radial] Respiratory Rate Blood Pressure 113/76 Blood Pressure [Right Arm] Blood Pressure Mean [Right Arm] 02 Sat by Pulse Oximetry 100 Oxygen Delivery Method Room Air Orders (Tests/Meds): ED MEDICATIONS Discontinued Medications Generic Name Dose Route Start Last Admin Trade Name Freq PRN Reason Stop Dose Admin Belladonna Alkaloids 60 ml 05/28/24 09:16 05/28/24 09:24 Belladonna Alkaloids 60 Ml Ml PO 05/28/24 09:17 60 ml ONCE ONE Administration Famotidine 20 mg 05/28/24 09:16 05/28/24 09:25 Famotidine 20mg Tablet PO 05/28/24 09:17 20 mg ONCE ONE Administration Ketorolac Tromethamine 15 mg 05/28/24 09:16 05/28/24 09:25 Ketorolac 30mg/Ml Vial IM 05/28/24 09:17 15 mg ONCE ONE Administration Lidocaine HCl 15 ml 05/28/24 09:16 05/28/24 09:24 Lidocaine 2% Viscous Jessica 15ml Udc PO 05/28/24 09:17 15 ml ONCE ONE Administration Medical Decision Narrative: In summary, this 29-year-old presents to the emergency department today with dental pain, odynophagia. On initial evaluation patient is afebrile, hemodynamically stable in no acute distress but on exam woman with 3-4 pulses in all extremities. Heart is regular rate and lung sounds clear to auscultation bilaterally. Her oropharynx is completely clear. She is having no issues tolerating her secretions on my examination.. Differential diagnosis includes but is not limited to dental pain, periapical abscess, deep space infection, Sean's angina, pill esophagitis, foreign body. Based on these concerns, I ordered considered ordering CT face to evaluate for deep space infection, however he has no tenderness on the floor the mouth, no crepitus, low concern for deep space infection or title attorney angina. Given patient is tolerating secretions, and it was just 1 pill that she swallowed and I have low concern for being in her airway given she has had no coughing or airway compromise, it is likely that this pill will dissolve, she is given strict precautions for pill esophagitis will be started on Pepcid, GI cocktail here. Toradol for dental pain relief. Offered dental block, but she refused. Given referral to dentistry outpatient in addition to information about walk-in dental clinic. Of note, social determinants of health include poor health literacy, inability to see specialist in a timely manner. At this time it was felt that the patient was safe to be discharged home. The patient was in agreement with this plan. The patient was given strict return precautions prior to being discharged from the emergency department. Critical Care Critical Care Time Critical Care Time: No
[2024-05-28 09:00] VITALS: BP 109/77; PULSE 62; O2SAT 100
--- NOTE | 2024-05-28 09:23 | PC.NURSE ---
ALLERGY BRACELET PLACED ON PT
[2024-05-28] MEDS: BELLADONNA ALKALOIDS 60 ML ML PO (09:24)
[2024-05-28] MEDS: LIDOCAINE 2% VISCOUS SOL 15ML UDC 15 ML PO (09:24)
[2024-05-28] MEDS: KETOROLAC 30MG/ML VIAL 15 MG IM (09:25)
[2024-05-28] MEDS: FAMOTIDINE 20MG TABLET 20 MG PO (09:25)
[2024-05-28 09:30] VITALS: BP 113/76; PULSE 82; O2SAT 100
[2024-05-28 11:15] VITALS: BP 113/76; PULSE 78; RESP 16; TEMP 36.9; O2SAT 99
== END 2024-05-28 11:16 | disposition home or self-care (01) ==
PROVIDERS: Emergency Provider Emergency Medicine; PCP Obstetrics & Gynecology
DX: K08.89 Other specified disorders of teeth and supporting structures (principal); R13.10 Dysphagia, unspecified; F17.210 Nicotine dependence, cigarettes, uncomplicated
CPT/HCPCS: 96372; 99283; J1885

== ENCOUNTER 2024-12-01 14:56 | Emergency (ER) | payer MEDICAID, SELFPAY ==
[2024-12-01 15:20] VITALS: BP 135/85; PULSE 77; RESP 18; TEMP 36.8; O2SAT 100; BMI 33.9
[2024-12-01 16:32] VITALS: TEMP 37.3
--- NOTE | 2024-12-01 16:44 | ED_ITS ---
<Statement entered by Pepe Hyman MD - 12/02/24 02:17> I was consulted by the GOLDIE, and we discussed the complexity of the problems being addressed. I approve the treatment and management plan for this patient's care in the emergency department, thus performing a substantive portion of the medical decision making. Pepe Hyman MD Discharge Plan Disposition Patient Disposition: Home, Self-Care Prescriptions Prescriptions: New clindamycin HCl [Cleocin HCl] 300 mg capsule 300 mg PO BID 7 Days Qty: 14 0RF Referrals Follow up/Referrals: Provider,Aimee, [Primary Care Provider, Medical] - See instructions Activity Restrictions/Add. Instructions Additional Instructions/Restrictions: Today you were evaluated in the emergency department and diagnosed with an infection of your left lower wisdom tooth. Please take the clindamycin as directed, try to follow-up with dentistry, return to the ED for any worsening of your condition including worsening of swelling, fever, body aches or chills. Clinical Impressions Clinical Impression: Dental infection, Pain, dental Instructions Patient Instructions: DI for Dental Pain Print Language Print Language: Honduran Discharge ED Provider: Pepe Hyman General Adult HPI <Yissel Jean APRN - Last Filed: 12/01/24 18:33> General Chief complaint: Dental/Oral Stated complaint: swelling in jaw,toothache Time Seen by Provider: 12/01/24 15:38 Mode of Arrival: Ambulatory Source of Information: Patient Description of Symptoms (Recalled from ER Triage Doc. by RN): Reports pain from her wisdom teeth that started in her jaw and radiates to her ear/presybeterian and down the left side of her neck that started last week. Pt has been taking NSAIDs and orajel at home to medicate. Has not seen/spoke w/ a dentist because she has had difficulty finding a dentist that will accept her insurance. Noted swelling to left side of face. History of Present Illness HPI narrative: patient is a 29-year-old female with no significant PMH who presents to the ED with complaints of left lower wisdom tooth pain x 1 week. Patient states she has attempted to call dentist but is having issues with them excepting her insurance. Related Data Previous Rx's ?Medication ?Instructions ?Recorded clindamycin HCl 300 mg capsule 300 mg PO BID 7 days #1 4 caps 12/01/24 (Cleocin HCl) Allergies Allergy/AdvReac Type Severity Reaction Status Date / Time Penicillins Allergy Severe rash Verified 12/01/24 16:31 PFS <Yissel Jean APRN - Last Filed: 12/01/24 18:33> PFS Disclaimer: The information contained in this section may have been updated after the patient was seen, as this information can be updated by other users. 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 (Updated 12/01/24 @ 16:43 by Yissel Jean APRN) hemorrhage History of hemorrhage, currently Active labor 37 weeks gestation of Tobacco use affecting , antepartum History of gestational diabetes in prior , currently Large for gestational age fetus affecting management of mother Pre-diabetes Surgical History (Updated 12/01/24 @ 16:30 by Tabitha Pedraza, YANELIS) History of salpingectomy Family History , VENKATA) Diabetes Mother Cancer Hypertension Social History Smoking Status: Current every day smoker tobacco type: cigarettes alcohol intake: former substance use type: denies use current occupational status: employed Travel in the last 8 weeks?: None Have you lived/traveled outside US in past 30 days?: No Contact w/someone who lives/traveled outside US past 30 days?: No Exposure to someone with infectious disease in past 14 days?: No Do you have a fever (greater than 100.4 F or 38 C)?: No Have you tested positive for COVID-19?: No Exposed to someone with COVID-19 in past 14 days?: No Do you have a sore throat?: No Do you have a cough?: No Do you have any weakness?: No Do you have any diarrhea?: No Are you experiencing any unusual bleeding?: No Do you have any muscle aches/pain?: No Do you have any abdominal pain?: No Are you experiencing loss of taste or smell?: No Other 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 Have you received the Flu Vaccine for this season: No Have you received the Pneumonia Vaccine: No <Yissel Jean APRN - Last Filed: 12/01/24 18:33> ROS Obtained: Yes Systems reviewed as appropriate & no additional complaints except as documented Physical Exam <Yissel Jean APRN - Last Filed: 12/01/24 18:33> General General appearance: alert and in no apparent distress Head Head exam: atraumatic Eye Eye exam: Present PERRL ENT ENT exam: Present other (left wisdom tooth decay, tenderness, edema) Respiratory Respiratory exam: Present normal lung sounds bilaterally Cardiovascular Cardiovascular exam: Present regular rate Neurological Exam Neurological exam: Present alert and oriented X3 Skin Skin exam: Present warm and dry Medical Decision Making <Yissel Jean APRN - Last Filed: 12/01/24 18:33> Medical Records Screening: Per USPSTF and CDC recommendations, given the prevalence of disease in our region, it is our hospital?s policy to screen for HIV and viral Hepatitis for all patients aged 18 and over and those with ongoing risk factors. Mychal Inquiry Pt receiving controlled substance: No Vital Signs: 12/01/24 15:20 12/01/24 16:32 12/01/24 17:07 Temperature 98.2 F 99.1 F 98.9 F Temperature Source Oral Oral Oral Pulse Rate 74 Pulse Rate [Right Brachial] 77 Respiratory Rate 18 18 Blood Pressure 132/88 Blood Pressure [Right Arm] 135/85 Blood Pressure Mean [Right Arm] 101 Blood Pressure Source Automatic Cuff Blood Pressure Source [Right Arm] Automatic Cuff Blood Pressure Position Sitting Blood Pressure Position [Right Arm] Sitting 02 Sat by Pulse Oximetry 100 Oxygen Delivery Method Room Air Room Air Orders (Tests/Meds): ED MEDICATIONS Discontinued Medications Generic Name Dose Route Start Last Admin Trade Name Freq PRN Reason Stop Dose Admin Benzocaine/Butamben/Tetracaine HCl 1 gm 12/01/24 16:48 12/01/24 16:54 Tetracaine/Benzocaine/Butamben 56 Gm Stuart TP 12/31/24 16:47 1 gm NEEDED PRN Administration dental pain Clindamycin HCl 300 mg 12/01/24 16:40 12/01/24 16:53 Clindamycin 150mg Capsule PO 12/01/24 16:41 300 mg ONCE ONE Administration Lidocaine HCl 15 ml 12/01/24 16:40 12/01/24 16:54 Lidocaine 2% Viscous Jessica 15ml Udc PO 12/01/24 16:41 15 ml ONCE ONE Administration Oxycodone HCl 5 mg 12/01/24 16:41 12/01/24 16:53 Oxycodone 5mg Immediate Release Tablet PO 12/01/24 16:42 5 mg ONCE ONE Administration Medical Decision Narrative: In summary, patient is a 29-year-old female with no significant PMH who presents to the ED with complaints of left lower wisdom tooth pain x 1 week. Patient states she has attempted to call dentist but is having issues with them excepting her insurance. She states she has tried taking Aleve and Tylenol for her dental pain without any relief. Patient states over the past 2 to 3 days she has developed swelling on the left lower facial area. Denies any difficulty breathing. Denies fever, chills, body aches, headache, visual disturbances, difficulty swallowing, chest pain, shortness of breath. Upon initial evaluation patient is alert, oriented and cooperative. She is hemodynamically stable, afebrile. Physical exam is remarkable for left wisdom tooth decay, tenderness, edema. Patient has left lower jaw mild edema. No airway edema. I offered patient a dental block, shared decision making used, she states she does not like needles so we will do tooth balls instead. I discussed that we will give her her first dose of clindamycin while in the ED. Discussed the impo rtance of picking the antibiotic up at the pharmacy and taking it in its entirety. We discussed the importance of following up with dentistry. Advised her to return to the ED for any worsening of her condition. <Pepe Hyman MD - Last Filed: 12/02/24 01:34> Vital Signs: 12/01/24 15:20 12/01/24 16:32 12/01/24 17:07 Temperature 98.2 F 99.1 F 98.9 F Temperature Source Oral Oral Oral Pulse Rate 74 Pulse Rate [Right Brachial] 77 Respiratory Rate 18 18 Blood Pressure 132/88 Blood Pressure [Right Arm] 135/85 Blood Pressure Mean [Right Arm] 101 Blood Pressure Source Automatic Cuff Blood Pressure Source [Right Arm] Automatic Cuff Blood Pressure Position Sitting Blood Pressure Position [Right Arm] Sitting 02 Sat by Pulse Oximetry 100 Oxygen Delivery Method Room Air Room Air Orders (Tests/Meds): ED MEDICATIONS Discontinued Medications Generic Name Dose Route Start Last Admin Trade Name Freq PRN Reason Stop Dose Admin Benzocaine/Butamben/Tetracaine HCl 1 gm 12/01/24 16:48 12/01/24 16:54 Tetracaine/Benzocaine/Butamben 56 Gm Stuart TP 12/31/24 16:47 1 gm NEEDED PRN Administration dental pain Clindamycin HCl 300 mg 12/01/24 16:40 12/01/24 16:53 Clindamycin 150mg Capsule PO 12/01/24 16:41 300 mg ONCE ONE Administration Lidocaine HCl 15 ml 12/01/24 16:40 12/01/24 16:54 Lidocaine 2% Viscous Jessica 15ml Udc PO 12/01/24 16:41 15 ml ONCE ONE Administration Oxycodone HCl 5 mg 12/01/24 16:41 12/01/24 16:53 Oxycodone 5mg Immediate Release Tablet PO 12/01/24 16:42 5 mg ONCE ONE Administration Medical Decision Narrative: In summary, patient is a 29-year-old female with no significant PMH who presents to the ED with complaints of left lower wisdom tooth pain x 1 week. Patient states she has attempted to call dentist but is having issues with them excepting her insurance. She states she has tried taking Aleve and Tylenol for her dental pain without any relief. Patient states over the past 2 to 3 days she has developed swelling on the left lower facial area. Denies any difficulty breathing. Denies fever, chills, body aches, headache, visual disturbances, difficulty swallowing, chest pain, shortness of breath. Upon initial evaluation patient is alert, oriented and cooperative. She is hemodynamically stable, afebrile. Physical exam is remarkable for left wisdom tooth decay, tenderness, edema. Patient has left lower jaw mild edema. No airway edema. I offered patient a dental block, shared decision making used, she states she does not like needles so we will do tooth balls instead. I discussed that we will give her her first dose of clindamycin while in the ED. Discussed the importance of picking the antibiotic up at the pharmacy and taking it in its entirety. We discussed the importance of following up with dentistry. Advised her to return to the ED for any worsening of her condition. Critical Care <Yissel Jean APRN - Last Filed: 12/01/24 18:33> Critical Care Time Critical Care Time: No
[2024-12-01] MEDS: OXYCODONE 5MG IMMEDIATE RELEASE TABLET 5 MG PO (16:53)
[2024-12-01] MEDS: CLINDAMYCIN 150MG CAPSULE 300 MG PO (16:53)
[2024-12-01] MEDS: LIDOCAINE 2% VISCOUS SOL 15ML UDC 15 ML PO (16:54)
[2024-12-01] MEDS: TETRACAINE/BENZOCAINE/BUTAMBEN 56 GM SPRAY TP (16:54)
[2024-12-01 17:07] VITALS: BP 132/88; PULSE 74; RESP 18; TEMP 37.2; O2SAT 99
== END 2024-12-01 17:10 | disposition home or self-care (01) ==
PROVIDERS: Emergency Provider Student in an Organized Health Care Education/Training Program
DX: R22.0 Localized swelling, mass and lump, head (principal); K08.89 Other specified disorders of teeth and supporting structures; F17.210 Nicotine dependence, cigarettes, uncomplicated
CPT/HCPCS: 99283

== ENCOUNTER 2025-03-15 18:30 | Emergency (ER) | payer MEDICAID, SELFPAY ==
[2025-03-15 19:11] VITALS: BP 128/88; PULSE 91; RESP 16; TEMP 36.6; O2SAT 97; BMI 35.5
--- NOTE | 2025-03-15 19:22 | [facility].EDGENADL ---
Discharge Plan Disposition Patient Disposition: Home, Self-Care Prescriptions Prescriptions: New clindamycin HCl [Cleocin HCl] 300 mg capsule 300 mg PO TID 7 Days Qty: 21 0RF ketorolac 10 mg tablet 10 mg PO Q8H PRN (Reason: pain) 3 Days Qty: 10 0RF No Action clindamycin HCl [Cleocin HCl] 300 mg capsule 300 mg PO BID 7 Days Qty: 14 0RF Referrals Follow up/Referrals: Provider,Referral, MD [Primary Care Provider, Medical] - See instructions Activity Restrictions/Add. Instructions Additional Instructions/Restrictions: You are being prescribed antibiotics to treat a dental infection. Take this as prescribed. You are also being prescribed Toradol for pain. Take this as prescribed. In addition to the Toradol, you can take Tylenol. Do not take naproxen if you are taking Toradol. I encourage you to follow-up closely with dentistry. If you develop any new or worsening symptoms, or if you become concerned for your help for any reason, return to the emergency department for evaluation Clinical Impressions Clinical Impression: Abscess, dental Print Language Print Language: Tamazight Discharge ED Provider: Pepe Hyman General Adult HPI General Chief complaint: PAIN Stated complaint: Left Tooth Pain & Jaw Swelling Time Seen by Provider: 03/15/25 19:11 Mode of Arrival: Ambulatory Source of Information: Patient Description of Symptoms (Recalled from ER Triage Doc. by RN): Patient presents with complaints of toothache that started last night. She reports the pain goes into her jaw. She has tried warm and dry compresses, OTC naprosyn and tylenol without any relief. History of Present Illness HPI narrative: Nahomy Hernández is a 29y female with a history of dental pain who presents to the emergency department for complaints of left lower dental pain that kept her up all night last night. She states that the pain started last night. She denies any fevers. She states it has been painful to swallow but she is still able to do so. She denies any shortness of breath has not had any significant drooling. She has tried naproxen and Tylenol at home without relief. She tried multiple dentists office but nobody will take her insurance and she has tried the walk-in clinic in [place] but cannot afford it. Related Data Previous Rx's ?Medication ?Instructions ?Recorded clindamycin HCl 300 mg capsule 300 mg PO BID 7 days #14 caps 12/01/24 (Cleocin HCl) clindamycin HCl 300 mg capsule 300 mg PO TID 7 days #21 caps 03/15/25 (Cleocin HCl) ketorolac 10 mg tablet 10 mg PO Q8H PRN pain 3 days #10 03/15/25 tabs Allergies Allergy/AdvReac Type Severity Reaction Status Date / Time Penicillins Allergy Severe rash Verified 12/01/24 16:31 [facility] Disclaimer: The information contained in this section may have been updated after the patient was seen, as this information can be updated by other users. 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 (Updated 03/15/25 @ 19:21 by Pepe Hyman MD) hemorrhage History of hemorrhage, currently Active labor 37 weeks gestation of Tobacco use affecting , antepartum History of gestational diabetes in prior , currently Large for gestational age fetus affecting management of mother Pre-diabetes Surgical History (Updated 12/01/24 @ 16:30 by Tabitha Pedraza RN) History of salpingectomy Family History , SERVICE [employer]ITER [employer]OR) Diabetes Mother Cancer Hypertension Social History Smoking Status: Current every day smoker tobacco type: cigarettes alcohol intake: former substance use type: denies use current occupational status: employed Travel in the last 8 weeks?: None Have you lived/traveled outside US in past 30 days?: No Contact w/someone who lives/traveled outside US past 30 days?: No Exposure to someone with infectious disease in past 14 days?: No Do you have a fever (greater than 100.4 F or 38 C)?: No Have you tested positive for COVID-19?: No Exposed to someone with COVID-19 in past 14 days?: No Do you have a sore throat?: No Do you have a cough?: No Do you have any weakness?: No Do you have any diarrhea?: No Are you experiencing any unusual bleeding?: No Do you have any muscle aches/pain?: No Do you have any abdominal pain?: No Are you experiencing loss of taste or smell?: No Other 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 Have you received the Flu Vaccine for this season: No Have you received the Pneumonia Vaccine: No ROS Obtained: Yes Systems reviewed as appropriate & no additional complaints except as documented Physical Exam General General appearance: alert and in no apparent distress Head Head exam: atraumatic Eye Eye exam: Present normal appearance ENT ENT exam: Present normal oropharynx (No tonsillar swelling or exudates. Midline uvula), mucous membranes moist, normal external ear exam and other (Tenderness to percussion over tooth 19 with some mild swelling along the gingiva/base of the tooth. Multiple dental caries throughout and tooth decay.) Neck Neck exam: Present full ROM Chest Chest inspection: Present symmetric chest wall rise Respiratory Respiratory exam: Present normal lung sounds bilaterally; Absent respiratory distress Cardiovascular Cardiovascular exam: Present regular rate and normal rhythm Abdominal Exam Abdominal exam: Present soft; Absent tenderness or guarding Extremities Exam Extremities exam: Present normal inspection Back Exam Back exam: Present normal inspection Neurological Exam Neurological exam: Present alert and oriented X3 Psychiatric Psychiatric exam: Present normal affect Skin Skin exam: Present warm and dry Medical Decision Making Medical Records Screening: Per USPSTF and CDC recommendations, given the prevalence of disease in our region, it is our hospital?s policy to screen for HIV and viral Hepatitis for all patients aged 18 and over and those with ongoing risk factors. Mychal Inquiry Pt receiving controlled substance: No Vital Signs: 03/15/25 19:11 Temperature 97.8 F Temperature Source Oral Pulse Rate [Right Radial] 91 H Respiratory Rate 16 Blood Pressure [Right Arm] 128/88 Blood Pressure Mean [Right Arm] 101 Blood Pressure Source [Right Arm] Automatic Cuff 02 Sat by Pulse Oximetry 97 Oxygen Delivery Method Room Air Orders (Tests/Meds): ED MEDICATIONS Discontinued Medications Generic Name Dose Route Start Last Admin Trade Name Antonio PRN Reason Stop Dose Admin Clindamycin HCl 450 mg 03/15/25 19:19 03/15/25 19:34 Clindamycin 150mg Capsule PO 03/15/25 19:20 450 mg ONCE ONE Administration Ketorolac Tromethamine 15 mg 03/15/25 19:28 03/15/25 19:35 Ketorolac 15mg/Ml Vial IM 03/15/25 19:29 15 mg ONCE ONE Administration Medical Decision Narrative: Nahomy Hernández is a 29y female with a history of dental pain who presents to the emergency department for complaints of left lower dental pain that kept her up all night last night. She states that the pain started last night. She denies any fevers. She states it has been painful to swallow but she is still able to do so. She denies any shortness of breath has not had any significant drooling. She has tried naproxen and Tylenol at home without relief. She tried multiple dentists office but nobody will take her insurance and she has tried the walk-in clinic in [place] but cannot afford it. On arrival, patient is hemodynamically stable, afebrile, breathing comfortably on room air and tolerating secretions well. Physical exam, stated above, revealed overall well-appearing female in no distress. Physical exam shows no tonsillar swelling or exudates. Uvula is midline. No hoarseness of voice. She is tolerating her secretions well. She has no difficulty breathing. She has some tenderness to percussion over the left lower tooth 19 but low clinical concern for peritonsillar abscess. Patient has no swelling in the sublingual space. Has some mild swelling at the gingiva and base of the tooth consistent with dental infection/abscess. Patient was offered inferior alveolar nerve block, however she declined. Patient would like to try Toradol shot as this has helped in the past. Will give 15 mg of IM Toradol as well as 450 mg of oral clindamycin (patient is allergic to penicillins). I discussed importance of patient follow-up closely with dentistry and she demonstrated understanding. Will call in additional 3 days of Toradol to the pharmacy and a 7-day course of clindamycin. Return precautions were given. All questions were answered. She was then discharged from the emergency department in stable condition peer Critical Care Critical Care Time Critical Care Time: No
[2025-03-15] MEDS: CLINDAMYCIN 150MG CAPSULE 450 MG PO (19:34)
[2025-03-15] MEDS: KETOROLAC 15MG/ML VIAL 15 MG IM (19:35)
[2025-03-15 19:51] VITALS: BP 130/86; PULSE 80; RESP 16; TEMP 36.6; O2SAT 100
== END 2025-03-15 19:58 | disposition home or self-care (01) ==
PROVIDERS: Emergency Provider Student in an Organized Health Care Education/Training Program
DX: K04.7 Periapical abscess without sinus (principal); R22.0 Localized swelling, mass and lump, head; F17.290 Nicotine dependence, other tobacco product, uncomplicated
CPT/HCPCS: 96372; 99283; J1885